=== PATIENT | female | born 1950 | race Caucasian/White ===

== ENCOUNTER 2020-03-24 05:10 | Emergency (ER) | payer BC, MEDICARE ==
[~2020-03-24] VITALS: Ht 165.1 cm; Wt 120.2 kg
--- OUTSIDE RECORDS SUMMARY | 2020-03-24 05:20 | XMS REPORT | Continuity of Care Document ---
Author Author [facility] Organization [facility] Address [address] [place] [address] Phone Unavailable Care Team Providers Care Coach Mechanic Name Role Phone Unavailable Unavailable Payers Payer Name Policy Type Policy Number Effective Date Expiration Date S ource Problems Condition Name Condition Details Condition Category Status Onset Date Resolution Date Last Treatment Date Treating Clinician Comments Source History of polyp of colon History of Polyp of Colon Problem Ac tive 2019-03-23 00:00:00 [facility] Cardiovascular stress test abnormal Cardiovascular Stress Test A bnormal Problem Active 2018-01-24 00:00:00 [facility] Postmenopausal bleeding Postmenopausal Bleeding Problem Active 2016-10-24 00:00:00 [facility] Type II diabetes mellitus uncontrolled Type II Diabetes Joaquina itus Uncontrolled Problem Active 2016-06-12 00:00:00 [facility] Colonoscopy Colonoscopy Problem Active 2016-04-10 00:00:00 [facility] Diverticular disease Diverticular Disease Problem Active 00:00:00 [facility] Hypothyroidism Hypothyroidism Problem Active 2016-02-07 00:00:00 [facility] Hypercholesterolemia Hypercholesterolemia Problem Active 00:00:00 [facility] Benign essential hypertension Benign Essential Hypertension Problem Active 2016-02-07 00:00:00 [facility] Body mass index 40+ - severely obese Body Mass Index 40+ - S everely Obese Problem Active 2016-02-07 00:00:00 [facility] Allergies, Adverse Reactions, Alerts Allergy Name Allergy Type Status Severity Reaction(s) Onset Date Inacti ve Date Treating Clinician Comments Source adhesive tape DA Active U 2019-04-09 00:00:00 [facility] Codeine Allergy to substance Active 2017-11-28 00:00:00 [facility] Penicillins DA Active AL 2017-11-28 00:00:00 [facility] codeine DA Active AL 2017-11-28 00:00:00 [facility] Social History Smoking Status Start Date Stop Date Source Never Smoker Ronda Heredia karla Medications Ordered Medication Name Filled Medication Name Start Date Stop Da te Current Medication? Ordering Clinician Indication Dosage Frequency Signature (SIG) Comments Components Source ascorbic acid (vitamin C) 250 mg tablet Take 1 tablet every day by oral route. ascorbic acid (vitamin C) 250 mg tablet Take 1 tablet every day by oral route. No 1 Q1D ascorbic a marta (vitamin C) 250 mg tablet Take 1 tablet every day by oral route. [facility] aspirin 81 mg chewable tablet Chew 2 tablets every day by oral route. aspirin 81 mg chewable tablet Chew 2 tablets every day by oral route. No 2 Q1D aspirin 81 mg chewable tablet Chew 2 tablets every day by oral route. [facility] Centrum Silver Once daily Centrum Silver Once daily No Centrum Silver Once daily [facility] Co Q-10 once daily Co Q-10 once daily No Co Q-10 once daily [facility] cyanocobalamin (vit B-12) 50 mcg tablet Once daily cya nocobalamin (vit B-12) 50 mcg tablet Once daily No cy anocobalamin (vit B-12) 50 mcg tablet Once daily [facility] Diflucan 150 mg tablet Take 1 tablet by oral route. Di flucan 150 mg tablet Take 1 tablet by oral route. No 1 Diflucan 150 mg tablet Take 1 tablet by oral route. [facility] IBU 800 mg tablet TAKE 1 TABLET BY MOUTH EVERY DAY NEEDED IBU 800 mg tablet TAKE 1 TABLET BY MOUTH EVERY DAY NEEDED No IBU 800 mg tablet TAKE 1 TABLET BY MOUTH EVERY DAY NEEDED [facility] levothyroxine 125 mcg tablet Take 1 tablet every day b y oral route for 90 days. levothyroxine 125 mcg tablet Take 1 tablet every day by oral route for 90 days. No 1 Q1D levothyrox ine 125 mcg tablet Take 1 tablet every day by oral route for 90 days. [facility] lisinopril 20 mg-hydrochlorothiazide 12. 5 mg tablet TAKE 1 TABLET BY MOUTH EVERY DAY lisinopril 20 mg-hydrochlorothiazide 12. 5 mg tablet TAKE 1 TABLET BY MOUTH EVERY DAY No lisinopril 20 mg-hydrochlorothiazide 12.5 mg tablet TAKE 1 TABLET BY MOUTH EVERY DAY [facility] OneTouch Ultra Blue Test Strip OneTouch Ultra Blue Test Strip No OneTouch Ultra Blue Test Strip [facility] Vitamin D once daily Vitamin D once daily No Vitamin D once daily [facility] Immunizations Ordered Immunization Name Filled Immunization Name Date Status Comments Source pneumococcal polysaccharide PPV23 pneumococcal polysaccharid e PPV23 2019-03-30 16:13:39 Completed [facility] influenza, high dose seasonal influenza, high dose seasonal 2017 18:29:00 Completed [facility] pneumococcal conjugate PCV 13 pneumococcal conjugate PCV 13 2017 18:29:00 Completed [facility] influenza, injectable, quadrivalent influenza, injectable, q uadrivalent 2017-01-26 00:00:00 Completed [facility] ice Hep B, adult Hep B, adult 2016-08-22 09:07:34 [facility]pleted [facility] zoster live zoster live 2016-06-12 18:22:40 Completed [facility] Practice Hep B, adult Hep B, adult 2016-03-25 15:50:13 Completed [facility] Hep B, adult Hep B, adult 2016-02-22 15:41:56 Completed [facility] influenza, seasonal, injectable influenza, seasonal, injecta ble 2016-02-07 16:46:56 Completed [facility] Tdap Tdap 2015-04-28 00:00:[address] [facility] Practice influenza, unspecified formulation influenza, unspecified fo rmulation 2015-01-15 00:00:00 Completed [facility] DTaP DTaP 2011-12-10 00:00:[address] [facility] Practice influenza, unspecified formulation influenza, unspecified fo rmulation 1996-02-27 00:00:00 Completed [facility] ice Vital Signs Vital Name Observation Time Observation Value Comments Source Height 2019-10-07 00:00:00 65 [in_i] [facility] BP Diastolic 2019-03-30 00:00:00 66 mm[Hg] [facility] Height 2019-03-30 00:00:00 65 [in_i] [facility] BMI (Body Mass Index) 2019-03-30 00:00:00 46.4 kg/m2 [facility] BP Systolic 2019-03-30 00:00:00 131 mm[Hg] [facility] Body Weight 2019-03-30 00:00:00 279 [lb_av] [facility] BP Diastolic 2019-03-16 00:00:00 88 mm[Hg] [facility] Height 2019-03-16 00:00:00 65 [in_i] [facility] BMI (Body Mass Index) 2019-03-16 00:00:00 47.2 kg/m2 [facility] BP Systolic 2019-03-16 00:00:00 138 mm[Hg] [facility] Body Weight 2019-03-16 00:00:00 283.6 [lb_av] [facility] BP Diastolic 2018-06-11 00:00:00 70 mm[Hg] [facility] Height 2018-06-11 00:00:00 65 [in_i] [facility] BMI (Body Mass Index) 2018-06-11 00:00:00 46.8 kg/m2 [facility] BP Systolic 2018-06-11 00:00:00 120 mm[Hg] [facility] Body Weight 2018-06-11 00:00:00 281 [lb_av] [facility] Procedures Procedure Date / Time Performed Performing Clinician Sourc e MAMMO, screening, digital, bilateral 2019-03-16 00:00:00 [facility] bone density 2019-03-16 00:00:00 [facility] Colonoscopy 2016-04-10 00:00:00 [facility] Practice Colonoscopy 2016-03-28 00:00:00 [facility] Practice Colonoscopy 2010-12-05 00:00:00 [facility] Practice Knee Surgery [facility] P ractice Tonsillectomy [facility] ractice Back Surgery [facility] P ractice Plan of Care Planned Activity Planned Date Details Comments Source Diagnostic Test Pending 2019-10-07 00:00:00 HbA1c (hemoglobi n A1c), blood [code = HbA1c (hemoglobin A1c), blood] [facility] Test Pending 2019-10-07 00:00:00 CMP, serum or pl asma [code = CMP, serum or plasma] [facility] Diagnostic Test Pending 2019-10-07 00:00:00 microalbumin/cre atinine, mass ratio, urine [code = microalbumin/creatinine, mass ratio, urine] [facility] Diagnostic Test Pending 2019-10-07 00:00:00 lipid panel, ser um [code = lipid panel, serum] [facility] Diagnostic Test Pending 2019-10-07 00:00:00 TSH, serum or pl asma [code = TSH, serum or plasma] [facility] Instructions [facility] Encounters Start Date/Time End Date/Time Encounter Type Admission Type Attendi [facility] Care Department Encounter ID Source 2019-10-07 00:00:00 2019-10-07 00:00:00 Luana Rahman MD: [id number], [address], [place] [address], Ph. [facility] - [facility] [id number] [facility] e 2019-03-30 00:00:00 2019-03-30 00:00:00 Janina Mills MD: [address] [place] [id number], Ph. [facility] - [facility] [id number] [facility] 2019-03-17 00:00:00 2019-03-17 00:00:00 Janina Mills MD: [facility] [place] [address], Ph. [facility] - [facility] [id number] [facility] 2019-03-16 00:00:00 2019-03-16 00:00:00 Janina Mills MD: [place] [address], Ph. [facility] [id number] [facility] 2018-06-11 00:00:00 2018-06-11 00:00:00 Janina Mills MD: [address] [place] [phone], Ph. [facility] [id number] [facility] Results Test Description Test Time Test Comments Results Result Comments Source BASIC METABOLIC PANEL 2019-04-09 21:26:00 Test Item SODIUM (test code = NA) 133 mmol/L 136-145 L POTASSIUM (test code = K) 4.6 mmol/L 3.5-5.1 N CHLORIDE (test code = CL) 97.0 mmol/L 98-107 L CARBON DIOXIDE (test code = CO2) 27.0 mmol/L 21-32 N ANION GAP (test code = GAP) 13.6 10-20 N GLUCOSE (test code = GLU) 518 mg/dL 74-106 HH Re sults called to [id number] by [email or web address] 04/09/19 1506Critical results verified and read back by Nurse? Y BLOOD UREA NITROGEN (test code = BUN) 23 mg/dL 7-18 H GLOMERULAR FILTRATION RATE (test code = GFR) 45 mL/min >=60 Estimated GFR by using Modified MDRD formula.Chronic kidney disease is defined as either kidney damageor GFR <60 mL/min/1.73 m2 for >3 months. CREATININE (test code = CREAT) 1.20 mg/dL 0.55-1.02 H Note change in reference range due to change in reagent. BUN/CREATININE RATIO (test code = BUN/CREA) 19.5 10-20 N CALCIUM (test code = CA) 9.6 mg/dL 8.5-10.1 N BASIC METABOLIC [id number] 15:07:00* Test Item Value Reference Range Interpretation Comments SODIUM (test code = NA) 133 mmol/L 136-145 L POTASSIUM (test code = K) 4.6 mmol/L 3.5-5.1 N CHLORIDE (test code = CL) 97.0 mmol/L 98-107 L CARBON DIOXIDE (test code = CO2) 27.0 mmol/L 21-32 N ANION GAP (test code = GAP) 13.6 10-20 N GLUCOSE (test code = GLU) 518 mg/dL 74-106 HH Re sults called to AOS TO CALL BACK by [email or web address] 04/09/19 1506Critical results verified and read back by Nurse? N BLOOD UREA NITROGEN (test code = BUN) 23 mg/dL 7-18 H GLOMERULAR FILTRATION RATE (test code = GFR) 45 mL/min >=60 Estimated GFR by using Modified MDRD formula.Chronic kidney disease is defined as either kidney damageor GFR <60 mL/min/1.73 m2 for >3 months. CREATININE (test code = CREAT) 1.20 mg/dL 0.55-1.02 H Note change in reference range due to change in reagent. BUN/CREATININE RATIO (test code = BUN/CREA) 19.5 10-20 N CALCIUM (test code = CA) 9.6 mg/dL 8.5-10.1 N HEPATIC FUNCTION [id number] 14:03:00* Test Item Value Reference Range Interpretation Comments TOTAL PROTEIN (test code = PROT) 8.2 gram/dL 6.4-8.2 N ALBUMIN (test code = ALB) 3.8 g/dL 3.4-5.0 N GLOBULIN (test code = GLOB) 4.4 gram/dL 2.7-4.2 H ALBUMIN/GLOBULIN RATIO (test code = A/G) 0.9 0.75-1.50 N BILIRUBIN TOTAL (test code = BILT) 0.50 mg/dL 0.0-1.0 N BILIRUBIN DIRECT (test code = BILD) 0.17 mg/dL 0.0-0.20 N SGOT/AST (test code = AST) 11 IUnit/L 15-37 L SGPT/ALT (test code = ALT) 24 IUnit/L 12-78 N ALKALINE PHOSPHATASE TOTAL (test code = ALKP) 112 IUnit/L 45-117 N Note change in reference range due to change in reagent. BASIC METABOLIC [id number] 13:58:00* Test Item Value Reference Range Interpretation Comments SODIUM (test code = NA) 133 mmol/L 136-145 L POTASSIUM (test code = K) 4.6 mmol/L 3.5-5.1 N CHLORIDE (test code = CL) 97.0 mmol/L 98-107 L CARBON DIOXIDE (test code = CO2) 27.0 mmol/L 21-32 N ANION GAP (test code = GAP) 13.6 10-20 N GLUCOSE (test code = GLU) mg/dL 74-106 BLOOD UREA NITROGEN (test code = BUN) 23 mg/dL 7-18 H GLOMERULAR FILTRATION RATE (test code = GFR) mL/min >=60 CREATININE (test code = CREAT) mg/dL 0.55-1.02 BUN/CREATININE RATIO (test code = BUN/CREA) 10-20 CALCIUM (test code = CA) 9.6 mg/dL 8.5-10.1 N CBC W/AUTO [id number] 13:55:00* Test Item Value Reference Range Interpretation Comments WHITE BLOOD CELL (test code = WBC) 7.8 K/mm3 4.5-12.5 N RED BLOOD CELL (test code = RBC) 5.25 mill/mm3 3.7-5.2 H HEMOGLOBIN (test code = HGB) 15.7 gram/dL 11.5-15.5 H HEMATOCRIT (test code = HCT) 49.2 % 36.0-46.0 H MEAN CELL VOLUME (test code = MCV) 93.7 fL 80-98 N MEAN CELL HGB (test code = MCH) 29.9 picogram 27.0-33.0 N MEAN CELL HGB CONCETRATION (test code = MCHC) 31.9 gram/dL 33.0-36. 0 L RED CELL DISTRIBUTION WIDTH (test code = RDW) 12.5 % 11.6-16. 2 N RED CELL DISTRIBUTION WIDTH SD (test code = RDW-SD) 43.3 fL 37 .0-51.0 N PLATELET COUNT (test code = PLT) 224 K/mm3 150-450 N MEAN PLATELET VOLUME (test code = MPV) 12.7 fL 6.7-11.0 H NEUTROPHIL % (test code = NT%) 61.1 % 39.0-69.0 N IMMATURE GRANULOCYTE % (test code = IG%) 0.3 % 0.0-5.0 N LYMPHOCYTE % (test code = LY%) 27.8 % 25.0-55.0 N MONOCYTE % (test code = MO%) 5.6 % 0.0-10.0 N EOSINOPHIL % (test code = EO%) 4.0 % 0.0-5.0 N BASOPHIL % (test code = BA%) 1.2 % 0.0-1.0 H NUCLEATED RBC % (test code = NRBC%) 0.0 % 0-0 N NEUTROPHIL # (test code = NT#) 4.78 K/mm3 1.8-7.7 N IMMATURE GRANULOCYTE # (test code = IG#) 0.02 x10 3/uL 0-0.03 N LYMPHOCYTE # (test code = LY#) 2.17 K/mm3 1.0-5.0 N MONOCYTE # (test code = MO#) 0.44 K/mm3 0-0.8 N EOSINOPHIL # (test code = EO#) 0.31 K/mm3 0.0-0.5 N BASOPHIL # (test code = BA#) 0.09 K/mm3 0.0-0.2 N NUCLEATED RBC # (test code = NRBC#) 0.00 K/mm3 0.0-0.1 N MANUAL DIFF REQUIRED (test code = MDIFF) NO BASIC METABOLIC [id number] 13:52:00* Test Item Value Reference Range Interpretation Comments SODIUM (test code = NA) 133 mmol/L 136-145 L POTASSIUM (test code = K) 4.6 mmol/L 3.5-5.1 N CHLORIDE (test code = CL) 97.0 mmol/L 98-107 L CARBON DIOXIDE (test code = CO2) mmol/L 21-32 ANION GAP (test code = GAP) 10-20 GLUCOSE (test code = GLU) mg/dL 74-106 BLOOD UREA NITROGEN (test code = BUN) mg/dL 7-18 GLOMERULAR FILTRATION RATE (test code = GFR) mL/min >=60 CREATININE (test code = CREAT) mg/dL 0.55-1.02 BUN/CREATININE RATIO (test code = BUN/CREA) 10-20 CALCIUM (test code = CA) mg/dL 8.5-10.1 Comprehensive metabolic 2000 panel - Serum or [id number] 17:27:00* Test Item Value Reference Range Interpretation Comments ALT (test code = ALT) 14 U/L 0-55 AST (test code = AST) 12 U/L 5-34 BUN (test code = BUN) 16.4 mg/dL 9.8-25.0 alk phos (test code = alk phos) 106 unit/L 40-150 glucose (test code = glucose) 408 mg/dL 70-99 H albumin (test code = albumin) 3.5 g/dL 3.4-5.1 creatinine (test code = creatinine) 0.99 mg/dL 0.57-1.11 eGFR non- (test code = eGFR non-anders n haitian) 56 mL/min/1.73m2 A total bilirubin (test code = total bilirubin) 0.6 mg/dL 0.2-1.2 eGFR - (test code = eGFR - ) >60 sodium (test code = sodium) 135 mEq/L 135-145 potassium (test code = potassium) 4.3 mEq/L 3.5-5.1 chloride (test code = chloride) 101 mmol/L 98-110 total protein (test code = total protein) 7.0 g/dL 6.1-8.2 calcium (test code = calcium) 9.2 mg/dL 8.6-10.4 CO2 (test code = CO2) 29.0 mmol/L 20.0-32.0 anion gap (test code = anion gap) 5 calc [facility] - Serum or [id number] 17:11:00* Test Item Value Reference Range Interpretation Comments HDL (test code = HDL) 53 mg/dL triglyceride (test code = triglyceride) 136 mg/dL 0-150 VLDL (calculated) (test code = VLDL (calculated)) 27 mg/dL cholesterol/HDL ratio (test code = cholesterol/HDL ratio) 4.4 mg/dL non-HDL cholesterol (calculated) (test code = non-HDL cholesterol (calculated)) 181 mg/dL 0-160 H cholesterol (test code = cholesterol) 234 mg/dL 0-200 H Cholesterol in LDL [Mass/volume] in Serum or Plasma (t est code = 2089-1) 154 mg/dL 0-130 H [facility] [Units/volume] in Serum or [id number] 17:11:00* Test Item Value Reference Range Interpretation Comments TSH (test code = TSH) 6.093 uIU/mL 0.350-4.940 H [facility] Women[facility] A1c/Hemoglobin.total in [id number] 15:20:00* Test Item Value Reference Range Interpretation Comments Hemoglobin A1c/Hemoglobin.total in Blood (test code = 4548-4) 14.7 % 1.0-5.7 H average blood glucose (test code = average blood glucose) 375 mg/dL [facility] Auto Differential panel - [id number] 15:17:00 * Test Item Value Reference Range Interpretation Comments WBC (test code = WBC) 5.66 x10*3/?L 3.98-10.04 RBC (test code = RBC) 4.90 10*12/L 3.93-5.22 hemoglobin (test code = hemoglobin) 14.80 g/dL 11.20-15.70 hematocrit (test code = hematocrit) 44.9 % 34.1-44.9 MCV (test code = MCV) 91.6 fL 80.0-100.0 MCH (test code = MCH) 30.2 pg 25.6-32.2 MCHC (test code = MCHC) 33.0 g/dL 32.2-35.5 RDW-SD (test code = RDW-SD) 42.7 fL 36.4-46.3 platelet count (test code = platelet count) 182.0 k/uL 182.0-369. 0 MPV (test code = MPV) 13.3 fL 7.5-11.5 H neut% (test code = neut%) 45.5 % 34.0-71.1 lymph% (test code = lymph%) 39.8 % 19.3-51.7 mon% (test code = mon%) 7.2 % 4.7-12.5 eos% (test code = eos%) 6.4 % 0.7-5.8 H baso% (test code = baso%) 1.1 % 0.1-1.2 neut# (test code = neut#) 2.6 x10*3/?L 1.6-6.1 lymph# (test code = lymph#) 2.3 x10*3/?L 1.2-3.7 mon# (test code = mon#) 0.4 x10*3/?L 0.2-0.9 eos# (test code = eos#) 0.36 x10*3/?L 0.04-0.36 baso# (test code = baso#) 0.06 x10*3/?L 0.01-0.08 [facility]
[2020-03-24 05:54] LABS: CLARITY,URINE SL CLOUDY (CLEAR); COLOR,URINE YELLOW (YELLOW)
--- NOTE | 2020-03-24 05:54 | Emergency Department Note ---
History of Present Illnes History of Present Illness Chief Complaint: Abdominal Complaints History of Present Illness This is a 69 year old female PRESENTS TO THE ER C/O RT HIP PAIN ONSET YESTERDAY; PT STATES SHE APPLIED ROLL-ON LIDOCAINE TO RT HIP WITH SLIGHT RELIEF . Historian: Patient Arrival Mode: Car [employer] Required: No Onset (how long ago): day(s) Location: RIGHT HIP/LOWER BACK Quality: PAIN Radiation: Reports non-radiation Severity: mild Onset quality: gradual Duration (how long): day(s) (1) Timing of current episode: constant Progression: unchanged Chronicity: new Context: Denies recent illness, Denies recent surgery Relieving factors: none Exacerbating factors: movement Associated symptoms: Reports denies other symptoms Past Medical/Family History Physician Review I have reviewed the patient's past medical and family history. Any updates have been documented here. Past Medical History Recent Fever: No Clinical Suspicion of Infectio: No New/Unexplained Change in Ment: No Past Medical History: Hypertension, Diabetes Other Surgery: BILATERAL KNEE SX Social History Smoking Cessation: Never Smoker Alcohol Use: None Any Illegal Drug Use: No Family History Family history of heart diseas: No Other family history HTN,DM Review of Systems Review of Systems Constitutional: Reports no symptoms EENTM: Reports no symptoms Cardiovascular: Reports no symptoms Respiratory: Reports no symptoms Gastrointestinal: Reports no symptoms Genitourinary: Reports no symptoms Musculoskeletal: Reports as per HPI Integumentary: Reports no symptoms Neurological: Reports no symptoms Psychological: Reports no symptoms Endocrine: Reports no symptoms Hematological/Lymphatic: Reports no symptoms Physical Exam Related Data Allergies: Coded Allergies: codeine (Verified Allergy, Unknown, 03/24/20) Triage Vital Signs Vital Signs Date Time Temp Pulse Resp B/P (MAP) Pulse Ox O2 Delivery O2 Flow Rate FiO2 03/24/20 05:22 98.4 87 20 126/83 96 Room Air Vital signs reviewed: Yes Physical Exam CONSTITUTIONAL Constitutional: Present well-developed, Present well-nourished; Absent distressed HENT HENT: Present normocephalic, Present atraumatic, Present oropharynx scott ar/moist, Present nose normal HENT L/R: Present left ext ear normal, Present right ext ear normal EYES Eyes: Reports PERRL, Reports conjunctivae normal NECK Neck: Present ROM normal PULMONARY Pulmonary: Present effort normal, Present breath sounds normal CARDIOVASCULAR Cardiovascular: Present regular rhythm, Present heart sounds normal, Present capillary refill normal, Present normal rate GASTROINTESTINAL Abdominal: Present soft, Present nontender, Present bowel sounds normal GENITOURINARY Genitourinary: Present exam deferred SKIN Skin: Present warm, Present dry MUSCULOSKELETAL Musculoskeletal: Present ROM normal, Present tenderness (RIGHT LOWER BACK, NO MIDLINE TENDERNESS) NEUROLOGICAL Neurological: Present alert, Present oriented x 3, Present no gross motor or sensory deficits PSYCHOLOGICAL Psychological: Present mood/affect normal, Present judgement normal Results Laboratory Laboratory Laboratory Tests Test 03/24/20 05:32 Lab results reviewed: Yes Assessment & Plan Medical Decision Making MDM PT WITH RIGHT LOWER BACK PAIN UA ORDERED TO EVAL FOR UTI Assessment & Plan Final Impression: (1) Back pain Depart Disposition: HOME, SELF-CARE Last Vital Signs Date Time Temp Pulse Resp B/P (MAP) Pulse Ox O2 Delivery O2 Flow Rate FiO2 03/24/20 05:22 98.4 87 20 126/83 96 Room Air ANTHONY MARTÍNEZ MD Mar 24, 2020 05:54
[2020-03-24 05:55] LABS: LEUKOCYTE ESTERASE ,URINE NEGATIVE (NEGATIVE); NITRITE,URINE NEGATIVE (NEGATIVE); PROTEIN,URINE DIPSTICK NEGATIVE (NEGATIVE)
[2020-03-24 05:56] LABS: BACTERIA,URINE RARE /HPF; BILIRUBIN,URINE NEGATIVE (NEGATIVE); EPITHELIAL CELLS,URINE FEW /LPF; KETONES,URINE NEGATIVE (NEGATIVE); RBC,URINE 21-50 /HPF (0-5); URINE UROBILINOGEN 0.2 mg/dL (0.2 - 1)
== END 2020-03-24 06:03 | disposition home or self-care (01) ==
LOC: ER 05:17
DX: M25.551 Pain in right hip (principal); M54.5 Low back pain; I10 Essential (primary) hypertension; E11.9 Type 2 diabetes mellitus without complications
CPT/HCPCS: 81001; 99283

== ENCOUNTER 2020-06-07 18:57 | Emergency (ER) | payer MEDICARE ==
[~2020-06-07] VITALS: Ht 165.1 cm; Wt 120.2 kg
[2020-06-07] MEDS ORDERED: SODIUM CHLORIDE 0.9% 1000ML 1,000 ML IV ONE ×2 (19:45→21:30)
[2020-06-07] MEDS ORDERED: SODIUM CHLORIDE 0.9% 1000ML 1,000 ML ONE (19:54)
[2020-06-07 20:14] LABS: BASOPHILS % 0.7 % (0.0-1.0); EOSINOPHILS % 0.4 % (0.0-6.0); HEMATOCRIT 45.8 % (34.2-44.1); HEMOGLOBIN 15.3 g/dL (12.0-16.0); LYMPHOCYTES # (AUTO) 1.1 (1.0-3.2); LYMPHOCYTES % 24.5 % (18.0-39.1); MEAN CORPUSCULAR HEMOGLOBIN 30.5 pg (28-32); MEAN CORPUSCULAR HGB CONC 33.4 g/dL (31-35); MEAN CORPUSCULAR VOLUME 91.4 fL (81-99); MONOCYTES # (AUTO) 0.5 (0.2-0.8); NEUTROPHILS # (AUTO) 2.8 (2.1-6.9); NEUTROPHILS % 62.2 % (38.7-80.0); PLATELET COUNT 145 x10e3/uL (140-360); RED BLOOD COUNT 5.01 x10e6/uL (3.6-5.1); RED CELL DISTRIBUTION WIDTH 12.6 % (11.7-14.4)
[2020-06-07 20:30] LABS: ALBUMIN 3.4 g/dL (3.5-5.0); ALBUMIN/GLOBULIN RATIO 0.9 (0.8-2.0); AMYLASE 15 U/L (25-125); ANION GAP 15.2 mmol/L (8-16); CALCIUM 8.6 mg/dL (8.4-10.2); CREATININE, SERUM 1.1 mg/dL (0.57-1.11); LIPASE 14 U/L (8-78); POTASSIUM 4.2 mmol/L (3.5-5.1)
[2020-06-07 21:08] LABS: CLARITY,URINE SL CLOUDY (CLEAR); COLOR,URINE YELLOW (YELLOW); KETONES,URINE 1+ (NEGATIVE); LEUKOCYTE ESTERASE ,URINE NEGATIVE (NEGATIVE); NITRITE,URINE NEGATIVE (NEGATIVE); PROTEIN,URINE DIPSTICK NEGATIVE (NEGATIVE); URINE UROBILINOGEN 0.2 mg/dL (0.2 - 1)
[2020-06-07 21:20] LABS: BACTERIA,URINE RARE /HPF; RBC,URINE 0-5 /HPF (0-5)
[2020-06-07] MEDS ORDERED: INSULIN REGULAR, HUMAN 100 UNIT/1 ML 3ML VIAL ONE (21:30)
[2020-06-07] MEDS ORDERED: INSULIN REGULAR, HUMAN 100 UNIT/1 ML 3ML VIAL SQ ONE (21:30)
[2020-06-07 23:03] VITALS: BP 124/76
== END 2020-06-07 23:04 | disposition home or self-care (01) ==
LOC: ER 19:33
DX: R19.7 Diarrhea, unspecified (principal); E11.65 Type 2 diabetes mellitus with hyperglycemia; R53.1 Weakness; I10 Essential (primary) hypertension; Z87.19 Personal history of other diseases of the digestive system
CPT/HCPCS: 36415; 80053; 81001; 82150; 82948; 83690; 85025; 93005; 99283; J1817; J7030

== ENCOUNTER 2020-06-12 13:31 | Inpatient (IN) | payer MEDICARE ==
[~2020-06-12] VITALS: Ht 165.1 cm; Wt 116.6 kg
[2020-06-12 14:17] LABS: BASOPHILS % 0.1 % (0.0-1.0); HEMATOCRIT 42.9 % (34.2-44.1); HEMOGLOBIN 14.4 g/dL (12.0-16.0); LYMPHOCYTES # (AUTO) 0.8 (1.0-3.2); LYMPHOCYTES % 11.1 % (18.0-39.1); MEAN CORPUSCULAR HGB CONC 33.6 g/dL (31-35); MEAN CORPUSCULAR VOLUME 89.4 fL (81-99); MONOCYTES # (AUTO) 0.4 (0.2-0.8); MONOCYTES % 4.8 % (4.4-11.3); NEUTROPHILS # (AUTO) 6.1 (2.1-6.9); NEUTROPHILS % 83.6 % (38.7-80.0); PLATELET COUNT 158 x10e3/uL (140-360); RED CELL DISTRIBUTION WIDTH 12.8 % (11.7-14.4)
[2020-06-12 14:38] LABS: ALBUMIN 2.4 g/dL (3.5-5.0); ALBUMIN/GLOBULIN RATIO 0.5 (0.8-2.0); ANION GAP 19.8 mmol/L (8-16); CALCIUM 8.3 mg/dL (8.4-10.2); CREATININE, SERUM 0.99 mg/dL (0.57-1.11); POTASSIUM 3.8 mmol/L (3.5-5.1)
[2020-06-12 14:45] LABS: CREATINE KINASE MB 0.5 ng/mL (0-5.0)
[2020-06-12] MEDS ORDERED: SODIUM CHLORIDE 0.9% 1000ML 1,000 ML IV STA (14:57)
[2020-06-12] MEDS ORDERED: INSULIN REGULAR, HUMAN 100 UNIT/1 ML 3ML VIAL IV ONE (15:00)
[2020-06-12] MEDS ORDERED: ONDANSETRON HCL INJ 2MG/ML 2ML 2 MG/ML VIAL IV PRN (18:30)
[2020-06-12] MEDS ORDERED: DEXTROSE 50% SYRINGE 50 ML IV PRN (18:30)
[2020-06-12] MEDS ORDERED: ZOLPIDEM TARTRATE 5 MG TAB PO PRN (18:30)
[2020-06-12] MEDS ORDERED: CEFTRIAXONE SOD 1 GM 50 ML IV SCH (18:30)
[2020-06-12] MEDS: AZITHROMYCIN 500MG/NS 250 ML 250 ML IV SCH (18:54)
[2020-06-12] MEDS ORDERED: CEFTRIAXONE SOD 1 GM VIAL ONE (18:58)
[2020-06-12] MEDS ORDERED: REMDESIVIR 200MG/NS 100ML 200 MG IV ONE (19:24)
[2020-06-12] MEDS ORDERED: REMDESIVIR 200MG/NS 100ML 200 MG in SODIUM CHLORIDE 0.9% 100 ML 100 ML IV ONE (19:55)
[2020-06-12] MEDS: INSULIN REGULAR, HUMAN 100 UNIT/1 ML 3ML VIAL SQ SCH (20:54)
[2020-06-12 22:34] LABS: CREATINE KINASE MB 0.8 ng/mL (0-5.0)
[2020-06-12] MEDS: ACETAMINOPHEN 325 MG TAB PO PRN (23:59)
[2020-06-13] MEDS ORDERED: DEXAMETHASONE SOD PHOS 10 MG/1 ML VIAL IV ONE (01:15)
[2020-06-13 06:32] LABS: BASOPHILS % 0.2 % (0.0-1.0); HEMATOCRIT 46.1 % (34.2-44.1); HEMOGLOBIN 15.3 g/dL (12.0-16.0); LYMPHOCYTES % 10.9 % (18.0-39.1); MEAN CORPUSCULAR HEMOGLOBIN 29.7 pg (28-32); MEAN CORPUSCULAR HGB CONC 33.2 g/dL (31-35); MEAN CORPUSCULAR VOLUME 89.5 fL (81-99); MONOCYTES # (AUTO) 0.4 (0.2-0.8); MONOCYTES % 3.9 % (4.4-11.3); NEUTROPHILS # (AUTO) 7.8 (2.1-6.9); NEUTROPHILS % 84.6 % (38.7-80.0); PLATELET COUNT 201 x10e3/uL (140-360); RED BLOOD COUNT 5.15 x10e6/uL (3.6-5.1); RED CELL DISTRIBUTION WIDTH 12.9 % (11.7-14.4)
[2020-06-13 07:19] LABS: ALANINE AMINOTRANSFERASE 24 IU/L (0-55); ALBUMIN 2.3 g/dL (3.5-5.0); ALBUMIN/GLOBULIN RATIO 0.5 (0.8-2.0); ALKALINE PHOSPHATASE 78 IU/L (40-150); BLOOD UREA NITROGEN 15 mg/dL (7-26); BUN/CREATININE RATIO 16 (6-25); CALCIUM 8.6 mg/dL (8.4-10.2); CARBON DIOXIDE 24 mmol/L (22-29); CHLORIDE 98 mmol/L (98-107); CREATININE, SERUM 0.92 mg/dL (0.57-1.11); EST GLOMERULAR FILTRATION RATE > 60 ML/MIN (60-); GLUCOSE 236 mg/dL (74-118); SODIUM 138 mmol/L (136-145)
[2020-06-13 07:46] LABS: CREATINE KINASE MB 1.7 ng/mL (0-5.0)
[2020-06-13 09:46] LABS: ABG HCO3 23 mmol/L (22-26); ABG PCO2 38 mmHg (35-45); ABG PH 7.39 (7.35-7.45); ABG PO2 50 mmHg (80-105); ABG TCO2 24
[2020-06-13] MEDS: DEXAMETHASONE SOD PHOS 10 MG/1 ML VIAL IV SCH (10:15)
[2020-06-13] MEDS: ACETAMINOPHEN 325 MG TAB PO PRN (10:15)
[2020-06-13] MEDS: ZINC SULFATE 220 MG CAP PO SCH (10:20)
[2020-06-13] MEDS: ENOXAPARIN SOD INJ 40 MG/0.4 ML SYR SC SCH (16:47)
[2020-06-13] MEDS: INSULIN REGULAR, HUMAN 100 UNIT/1 ML 3ML VIAL SQ SCH ×4 (16:58→21:07)
[2020-06-13] MEDS: AZITHROMYCIN 500MG/NS 250 ML 250 ML IV SCH (19:19)
[2020-06-13] MEDS: CEFTRIAXONE SOD 1 GM in DEXTROSE 5% 50ML 50 ML IV SCH (20:55)
[2020-06-13] MEDS ORDERED: CEFTRIAXONE SOD 1 GM VIAL ONE (21:00)
[2020-06-14] MEDS: ACETAMINOPHEN 325 MG TAB PO PRN (06:32)
[2020-06-14] MEDS: INSULIN REGULAR, HUMAN 100 UNIT/1 ML 3ML VIAL SQ SCH ×4 (08:22→23:31)
[2020-06-14] MEDS: ZINC SULFATE 220 MG CAP PO SCH (09:24)
[2020-06-14] MEDS: DEXAMETHASONE SOD PHOS 10 MG/1 ML VIAL IV SCH (09:24)
[2020-06-14] MEDS ORDERED: CEFTRIAXONE SOD 1 GM VIAL ONE (20:05)
[2020-06-14] MEDS ORDERED: SODIUM CHLORIDE 0.9% 50ML 50 ML ONE (20:06)
[2020-06-14] MEDS ORDERED: INSULIN GLARGINE 100 UNITS/ML VIAL SQ SCH (21:00)
[2020-06-14] MEDS: CEFTRIAXONE SOD 1 GM in DEXTROSE 5% 50ML 50 ML IV SCH (21:32)
[2020-06-14] MEDS: ENOXAPARIN SOD INJ 40 MG/0.4 ML SYR SC SCH (21:32)
[2020-06-14] MEDS: AZITHROMYCIN 500MG/NS 250 ML 250 ML IV SCH (21:59)
[2020-06-14] MEDS ORDERED: POLYETHYLENE GLYCOL 3350 17 GM PACK PO PRN (22:30)
[2020-06-14] MEDS ORDERED: HYDRALAZINE HCL 20 MG/ML VIAL IV PRN (22:30)
[2020-06-14] MEDS ORDERED: TEMAZEPAM 7.5 MG CAP PO PRN (22:30)
[2020-06-14 23:17] VITALS: BP 136/78
[2020-06-14] MEDS ORDERED: levothyroxine PO (23:57)
[2020-06-14] MEDS ORDERED: LISINOPRIL HCTZ PO (23:57)
[2020-06-14 23:58] VITALS: BP 136/78
[2020-06-15] VITALS (23 sets, daily range): BP systolic 92–138; BP diastolic 66–91
[2020-06-15 05:37] LABS: BASOPHILS % 0.2 % (0.0-1.0); HEMATOCRIT 47.9 % (34.2-44.1); HEMOGLOBIN 15.7 g/dL (12.0-16.0); LYMPHOCYTES # (AUTO) 1.6 (1.0-3.2); LYMPHOCYTES % 13.9 % (18.0-39.1); MEAN CORPUSCULAR HEMOGLOBIN 29.6 pg (28-32); MEAN CORPUSCULAR HGB CONC 32.8 g/dL (31-35); MEAN CORPUSCULAR VOLUME 90.4 fL (81-99); MONOCYTES # (AUTO) 0.6 (0.2-0.8); MONOCYTES % 5.4 % (4.4-11.3); NEUTROPHILS # (AUTO) 8.9 (2.1-6.9); NEUTROPHILS % 79.3 % (38.7-80.0); PLATELET COUNT 261 x10e3/uL (140-360)
[2020-06-15 05:55] LABS: ALANINE AMINOTRANSFERASE 19 IU/L (0-55); ALBUMIN 2.2 g/dL (3.5-5.0); ALBUMIN/GLOBULIN RATIO 0.5 (0.8-2.0); ALKALINE PHOSPHATASE 106 IU/L (40-150); ANION GAP 15.1 mmol/L (8-16); BLOOD UREA NITROGEN 23 mg/dL (7-26); BUN/CREATININE RATIO 30 (6-25); CALCIUM 8.6 mg/dL (8.4-10.2); CARBON DIOXIDE 31 mmol/L (22-29); CHLORIDE 102 mmol/L (98-107); CREATININE, SERUM 0.77 mg/dL (0.57-1.11); EST GLOMERULAR FILTRATION RATE > 60 ML/MIN (60-); GLUCOSE 187 mg/dL (74-118); POTASSIUM 4.1 mmol/L (3.5-5.1); SODIUM 144 mmol/L (136-145)
[2020-06-15] MEDS: INSULIN REGULAR, HUMAN 100 UNIT/1 ML 3ML VIAL SQ SCH ×4 (07:30→21:39)
[2020-06-15] MEDS: FAMOTIDINE 20 MG TAB PO SCH ×2 (07:30→19:03)
[2020-06-15 08:18] LABS: LYMPHOCYTES % (MANUAL) 11 % (19-48); MONOCYTES % (MANUAL) 10 % (3.4-9.0); NEUTROPHILS % (MANUAL) 76 % (40-74); PLATELET ESTIMATE ADEQUATE; PLATELET MORPHOLOGY COMMENT NORMAL; RBC MORPHOLOGY COMMENT NORMAL
[2020-06-15] MEDS: CHOLECALCIFEROL 400 UNIT TAB PO SCH (09:30)
[2020-06-15] MEDS: ZINC SULFATE 220 MG CAP PO SCH (09:30)
[2020-06-15] MEDS: DOCUSATE SODIUM 100 MG CAP PO SCH ×2 (09:30→19:03)
[2020-06-15] MEDS: ASCORBIC ACID 500 MG TAB PO SCH ×2 (09:30→19:03)
[2020-06-15] MEDS: DEXAMETHASONE SOD PHOS 10 MG/1 ML VIAL IV SCH (09:32)
[2020-06-15] MEDS: ENOXAPARIN SOD INJ 40 MG/0.4 ML SYR SC SCH (19:03)
[2020-06-15] MEDS: AZITHROMYCIN 500MG/NS 250 ML 250 ML IV SCH (19:03)
[2020-06-15] MEDS: CEFTRIAXONE SOD 1 GM in DEXTROSE 5% 50ML 50 ML IV SCH (21:29)
[2020-06-15] MEDS: INSULIN GLARGINE 100 UNITS/ML VIAL SQ SCH (21:39)
[2020-06-16] VITALS (18 sets, daily range): BP systolic 92–133; BP diastolic 43–91
[2020-06-16 06:12] LABS: BASOPHILS # (AUTO) 0.1 (0.0-0.1); BASOPHILS % 0.5 % (0.0-1.0); EOSINOPHILS % 0.3 % (0.0-6.0); HEMATOCRIT 46.5 % (34.2-44.1); LYMPHOCYTES # (AUTO) 1.3 (1.0-3.2); MEAN CORPUSCULAR HEMOGLOBIN 29.2 pg (28-32); MEAN CORPUSCULAR HGB CONC 32.3 g/dL (31-35); MEAN CORPUSCULAR VOLUME 90.6 fL (81-99); MONOCYTES # (AUTO) 0.5 (0.2-0.8); MONOCYTES % 4.6 % (4.4-11.3); NEUTROPHILS # (AUTO) 8.5 (2.1-6.9); NEUTROPHILS % 80.7 % (38.7-80.0); PLATELET COUNT 210 x10e3/uL (140-360); RED BLOOD COUNT 5.13 x10e6/uL (3.6-5.1); RED CELL DISTRIBUTION WIDTH 13.2 % (11.7-14.4)
[2020-06-16 06:47] LABS: ALANINE AMINOTRANSFERASE 18 IU/L (0-55); ALBUMIN 2.1 g/dL (3.5-5.0); ALBUMIN/GLOBULIN RATIO 0.4 (0.8-2.0); ALKALINE PHOSPHATASE 119 IU/L (40-150); ANION GAP 15.2 mmol/L (8-16); BLOOD UREA NITROGEN 19 mg/dL (7-26); BUN/CREATININE RATIO 25 (6-25); CALCIUM 8.3 mg/dL (8.4-10.2); CARBON DIOXIDE 29 mmol/L (22-29); CHLORIDE 104 mmol/L (98-107); CREATININE, SERUM 0.77 mg/dL (0.57-1.11); EST GLOMERULAR FILTRATION RATE > 60 ML/MIN (60-); GLUCOSE 151 mg/dL (74-118); POTASSIUM 4.2 mmol/L (3.5-5.1); SODIUM 144 mmol/L (136-145)
[2020-06-16] MEDS: ACETAMINOPHEN 325 MG TAB PO PRN ×2 (07:00)
[2020-06-16] MEDS: FAMOTIDINE 20 MG TAB PO SCH ×2 (08:31→17:31)
[2020-06-16] MEDS: DEXAMETHASONE SOD PHOS 10 MG/1 ML VIAL IV SCH (08:32)
[2020-06-16] MEDS: INSULIN REGULAR, HUMAN 100 UNIT/1 ML 3ML VIAL SQ SCH ×4 (08:32→22:00)
[2020-06-16] MEDS: DOCUSATE SODIUM 100 MG CAP PO SCH ×2 (08:32→17:31)
[2020-06-16] MEDS: ASCORBIC ACID 500 MG TAB PO SCH ×2 (08:32→17:31)
[2020-06-16] MEDS: ZINC SULFATE 220 MG CAP PO SCH (08:32)
[2020-06-16] MEDS: CHOLECALCIFEROL 400 UNIT TAB PO SCH (08:32)
[2020-06-16 13:50] LABS: LYMPHOCYTES % (MANUAL) 6 % (19-48); MONOCYTES % (MANUAL) 5 % (3.4-9.0); NEUTROPHILS % (MANUAL) 89 % (40-74); PLATELET ESTIMATE ADEQUATE; PLATELET MORPHOLOGY COMMENT NORMAL; RBC MORPHOLOGY COMMENT NORMAL
[2020-06-16] MEDS: ENOXAPARIN SOD INJ 40 MG/0.4 ML SYR SC SCH (17:32)
[2020-06-16] MEDS: AZITHROMYCIN 500MG/NS 250 ML 250 ML IV SCH (17:32)
[2020-06-16] MEDS ORDERED: DEXMEDETOMIDINE IV ONE (20:36)
[2020-06-16] MEDS ORDERED: [UNRECOGNIZED DRUG - OTHER] IV ONE (20:36)
[2020-06-16] MEDS: DEXMEDETOMIDINE HCL 200 MCG in SODIUM CHLORIDE 0.9% 50ML 48 ML IV SCH (21:00)
[2020-06-16] MEDS: CEFTRIAXONE SOD 1 GM in DEXTROSE 5% 50ML 50 ML IV SCH (21:08)
[2020-06-16] MEDS: INSULIN GLARGINE 100 UNITS/ML VIAL SQ SCH (22:00)
[2020-06-17] VITALS (16 sets, daily range): BP systolic 91–136; BP diastolic 41–84
[2020-06-17] MEDS: DEXMEDETOMIDINE HCL 200 MCG in SODIUM CHLORIDE 0.9% 50ML 48 ML IV SCH ×3 (01:45→14:00)
[2020-06-17 05:54] LABS: HEMATOCRIT 45.2 % (34.2-44.1); HEMOGLOBIN 14.7 g/dL (12.0-16.0); MEAN CORPUSCULAR HEMOGLOBIN 29.5 pg (28-32); MEAN CORPUSCULAR VOLUME 90.6 fL (81-99); RED BLOOD COUNT 4.99 x10e6/uL (3.6-5.1)
[2020-06-17 05:55] LABS: BASOPHILS % 0.3 % (0.0-1.0); EOSINOPHILS # (AUTO) 0.1 (0.0-0.4); EOSINOPHILS % 0.8 % (0.0-6.0); MEAN CORPUSCULAR HGB CONC 32.5 g/dL (31-35); MONOCYTES # (AUTO) 0.6 (0.2-0.8); MONOCYTES % 4.5 % (4.4-11.3); NEUTROPHILS # (AUTO) 10.5 (2.1-6.9); NEUTROPHILS % 77.3 % (38.7-80.0); PLATELET COUNT 144 x10e3/uL (140-360); RED CELL DISTRIBUTION WIDTH 13.2 % (11.7-14.4)
[2020-06-17 06:16] LABS: ALANINE AMINOTRANSFERASE 14 IU/L (0-55); ALBUMIN 2.1 g/dL (3.5-5.0); ALBUMIN/GLOBULIN RATIO 0.5 (0.8-2.0); ALKALINE PHOSPHATASE 143 IU/L (40-150); ANION GAP 13.5 mmol/L (8-16); BLOOD UREA NITROGEN 18 mg/dL (7-26); BUN/CREATININE RATIO 24 (6-25); CARBON DIOXIDE 31 mmol/L (22-29); CHLORIDE 103 mmol/L (98-107); CREATININE, SERUM 0.75 mg/dL (0.57-1.11); EST GLOMERULAR FILTRATION RATE > 60 ML/MIN (60-); GLUCOSE 60 mg/dL (74-118); POTASSIUM 3.5 mmol/L (3.5-5.1); SODIUM 144 mmol/L (136-145)
[2020-06-17] MEDS: INSULIN REGULAR, HUMAN 100 UNIT/1 ML 3ML VIAL SQ SCH ×4 (07:30→21:10)
[2020-06-17] MEDS: FAMOTIDINE 20 MG TAB PO SCH ×2 (07:30→16:30)
[2020-06-17] MEDS: DEXAMETHASONE SOD PHOS 10 MG/1 ML VIAL IV SCH (08:39)
[2020-06-17] MEDS: CHOLECALCIFEROL 400 UNIT TAB PO SCH (08:39)
[2020-06-17] MEDS: ASCORBIC ACID 500 MG TAB PO SCH ×2 (08:39→16:30)
[2020-06-17] MEDS: ZINC SULFATE 220 MG CAP PO SCH (08:39)
[2020-06-17] MEDS: DOCUSATE SODIUM 100 MG CAP PO SCH ×2 (08:39→16:30)
[2020-06-17] MEDS ORDERED: DEXTROSE IV ONE (12:00)
[2020-06-17] MEDS ORDERED: SOD CHL IV ONE (12:00)
[2020-06-17] MEDS ORDERED: POTASSIUM CHLORIDE IV ONE (12:00)
[2020-06-17] MEDS: ENOXAPARIN SOD INJ 40 MG/0.4 ML SYR SC SCH (16:30)
[2020-06-17 16:44] LABS: ABG HCO3 30 mmol/L (22-26); ABG PCO2 35 mmHg (35-45); ABG PH 7.55 (7.35-7.45); ABG PO2 88 mmHg (80-105); ABG TCO2 31
[2020-06-17] MEDS: INSULIN GLARGINE 100 UNITS/ML VIAL SQ SCH (22:46)
[2020-06-18] VITALS (20 sets, daily range): BP systolic 94–157; BP diastolic 53–99
[2020-06-18] MEDS: DEXMEDETOMIDINE HCL 200 MCG in SODIUM CHLORIDE 0.9% 50ML 48 ML IV SCH ×3 (00:45→08:08)
[2020-06-18] MEDS: PIPERACILLIN/TAZOBAC 3.375 GM in DEXTROSE 5% 50ML 50 ML IV SCH (01:00)
[2020-06-18] MEDS: INSULIN GLARGINE 100 UNITS/ML VIAL SQ SCH (01:00)
[2020-06-18 05:39] LABS: BASOPHILS % 0.3 % (0.0-1.0); EOSINOPHILS % 0.1 % (0.0-6.0); HEMOGLOBIN 13.8 g/dL (12.0-16.0); LYMPHOCYTES # (AUTO) 1.2 (1.0-3.2); LYMPHOCYTES % 8.6 % (18.0-39.1); MEAN CORPUSCULAR HEMOGLOBIN 29.4 pg (28-32); MEAN CORPUSCULAR HGB CONC 32.1 g/dL (31-35); MEAN CORPUSCULAR VOLUME 91.7 fL (81-99); MONOCYTES # (AUTO) 0.6 (0.2-0.8); MONOCYTES % 4.7 % (4.4-11.3); NEUTROPHILS # (AUTO) 11.5 (2.1-6.9); NEUTROPHILS % 84.5 % (38.7-80.0); PLATELET COUNT 103 x10e3/uL (140-360); RED BLOOD COUNT 4.69 x10e6/uL (3.6-5.1); RED CELL DISTRIBUTION WIDTH 13.6 % (11.7-14.4)
[2020-06-18 06:04] LABS: ALANINE AMINOTRANSFERASE 14 IU/L (0-55); ALBUMIN 1.6 g/dL (3.5-5.0); ALBUMIN/GLOBULIN RATIO 0.5 (0.8-2.0); ALKALINE PHOSPHATASE 139 IU/L (40-150); ANION GAP 14.3 mmol/L (8-16); BLOOD UREA NITROGEN 19 mg/dL (7-26); BUN/CREATININE RATIO 27 (6-25); CARBON DIOXIDE 23 mmol/L (22-29); CHLORIDE 111 mmol/L (98-107); EST GLOMERULAR FILTRATION RATE > 60 ML/MIN (60-); GLUCOSE 135 mg/dL (74-118); POTASSIUM 3.3 mmol/L (3.5-5.1); SODIUM 145 mmol/L (136-145)
[2020-06-18 06:07] LABS: CALCIUM 6.5 mg/dL (8.4-10.2)
[2020-06-18] MEDS: FAMOTIDINE 20 MG TAB PO SCH ×2 (07:30→17:01)
[2020-06-18] MEDS ORDERED: DEXMEDETOMIDINE 200MCG/NS 50ML 50 ML IV ONE (07:41)
[2020-06-18] MEDS: DOCUSATE SODIUM 100 MG CAP PO SCH ×2 (08:09→17:01)
[2020-06-18] MEDS: CHOLECALCIFEROL 400 UNIT TAB PO SCH (08:09)
[2020-06-18] MEDS: ASCORBIC ACID 500 MG TAB PO SCH ×2 (08:09→17:01)
[2020-06-18] MEDS: ZINC SULFATE 220 MG CAP PO SCH (08:09)
[2020-06-18] MEDS: INSULIN REGULAR, HUMAN 100 UNIT/1 ML 3ML VIAL SQ SCH ×4 (08:25→21:00)
[2020-06-18] MEDS: DEXAMETHASONE SOD PHOS 10 MG/1 ML VIAL IV SCH (10:06)
[2020-06-18] MEDS ORDERED: POTASSIUM CHLORIDE 20 MEQ TAB CR PO ONE (12:55)
[2020-06-18] MEDS ORDERED: KCL 20 MEQ PACKET/ ORAL SOLN NG ONE (13:05)
[2020-06-18] MEDS ORDERED: SODIUM CHLORIDE 0.9% 500ML 500 ML IV ONE ×2 (13:15→13:30)
[2020-06-18] MEDS ORDERED: SODIUM CHLORIDE 0.9% 1000ML 1,000 ML ONE (13:35)
[2020-06-18] MEDS: FENTANYL 2000MCG/NS 250 250 ML IV SCH (14:21)
[2020-06-18] MEDS: NOREPINEPHRINE 8 MG/D5W 250 ML 250 ML IV SCH (14:22)
[2020-06-18] MEDS: PROPOFOL IV EMULSION 10MG/ML 100 ML IV SCH (15:29)
[2020-06-18 15:53] LABS: ABG HCO3 29 mmol/L (22-26); ABG PCO2 57 mmHg (35-45); ABG PH 7.32 (7.35-7.45); ABG PO2 108 mmHg (80-105); ABG TCO2 31
[2020-06-18] MEDS: ENOXAPARIN SOD INJ 40 MG/0.4 ML SYR SC SCH (17:01)
[2020-06-18] MEDS: ROCURONIUM BROMIDE 1,250 MG in SODIUM CHLORIDE 0.9% 250ML 125 ML IV SCH (17:01)
[2020-06-19] VITALS (33 sets, daily range): BP systolic 87–151; BP diastolic 49–81
[2020-06-19] MEDS ORDERED: PIPERACILLIN/TAZOBAC 3.375 GM VIAL ONE ×2 (00:48→00:50)
[2020-06-19] MEDS ORDERED: DEXTROSE 5% 50ML 100 ML IV ONE (00:51)
[2020-06-19 05:23] LABS: BASOPHILS # (AUTO) 0.1 (0.0-0.1); BASOPHILS % 0.4 % (0.0-1.0); EOSINOPHILS % 0.2 % (0.0-6.0); HEMATOCRIT 46.8 % (34.2-44.1); HEMOGLOBIN 14.7 g/dL (12.0-16.0); LYMPHOCYTES % 8.9 % (18.0-39.1); MEAN CORPUSCULAR HEMOGLOBIN 30.4 pg (28-32); MEAN CORPUSCULAR HGB CONC 31.4 g/dL (31-35); MEAN CORPUSCULAR VOLUME 96.7 fL (81-99); MONOCYTES # (AUTO) 1.1 (0.2-0.8); NEUTROPHILS # (AUTO) 18.4 (2.1-6.9); NEUTROPHILS % 81.4 % (38.7-80.0); PLATELET COUNT 131 x10e3/uL (140-360); RED BLOOD COUNT 4.84 x10e6/uL (3.6-5.1)
[2020-06-19 05:40] LABS: CALCIUM IONIZED 1.1 mmol/L (1.09-1.30)
[2020-06-19 06:00] LABS: ALBUMIN 1.9 g/dL (3.5-5.0); ALBUMIN/GLOBULIN RATIO 0.5 (0.8-2.0); ANION GAP 17.8 mmol/L (8-16); CALCIUM 7.7 mg/dL (8.4-10.2); CREATININE, SERUM 1.05 mg/dL (0.57-1.11); POTASSIUM 4.8 mmol/L (3.5-5.1)
[2020-06-19] MEDS: PIPERACILLIN/TAZOBAC 3.375 GM in DEXTROSE 5% 50ML 50 ML IV SCH (06:52)
[2020-06-19] MEDS: INSULIN REGULAR, HUMAN 100 UNIT/1 ML 3ML VIAL SQ SCH ×3 (06:55→18:08)
[2020-06-19] MEDS: FAMOTIDINE 20 MG TAB PO SCH ×2 (09:18→16:37)
[2020-06-19] MEDS: DOCUSATE SODIUM 100 MG CAP PO SCH ×2 (09:18→17:20)
[2020-06-19] MEDS: CHOLECALCIFEROL 400 UNIT TAB PO SCH (09:18)
[2020-06-19] MEDS: ASCORBIC ACID 500 MG TAB PO SCH ×2 (09:18→17:20)
[2020-06-19] MEDS: DEXAMETHASONE SOD PHOS 10 MG/1 ML VIAL IV SCH (09:18)
[2020-06-19] MEDS: ZINC SULFATE 220 MG CAP PO SCH (09:19)
[2020-06-19 11:29] LABS: ABG PH 7.33 (7.35-7.45)
[2020-06-19 11:30] LABS: ABG HCO3 26 mmol/L (22-26); ABG PCO2 50 mmHg (35-45); ABG PO2 131 mmHg (80-105); ABG TCO2 28
[2020-06-19] MEDS ORDERED: VANCOMYCIN 1GM/NS 250 ML 250 ML IV ONE (12:00)
[2020-06-19] MEDS: PROPOFOL IV EMULSION 10MG/ML 100 ML IV SCH (12:30)
[2020-06-19] MEDS: FENTANYL 2000MCG/NS 250 250 ML IV SCH ×2 (12:30→23:01)
[2020-06-19] MEDS ORDERED: FENTANYL 2,000 MCG/250 ML BAG ONE (13:18)
[2020-06-19] MEDS ORDERED: MIDAZOLAM HCL 5MG/ML 10ML VIAL 100 ML BAG IV ONE (13:18)
[2020-06-19] MEDS: ROCURONIUM BROMIDE 1,250 MG in SODIUM CHLORIDE 0.9% 250ML 125 ML IV SCH (14:42)
[2020-06-19] MEDS: NOREPINEPHRINE 8 MG/D5W 250 ML 250 ML IV SCH (14:42)
[2020-06-19] MEDS: MEROPENEM 1GM 100 ML IV SCH ×2 (14:42→21:50)
[2020-06-19] MEDS: ENOXAPARIN SODIUM INJ 100 MG/ML SYR SC SCH (17:38)
[2020-06-19] MEDS: MIDAZOLAM HCL 5MG/ML 10ML VIAL 100 ML IV PRN (20:02)
[2020-06-19] MEDS ORDERED: ENOXAPARIN SOD INJ 40 MG/0.4 ML SYR SC SCH (21:00)
[2020-06-19] MEDS: INSULIN GLARGINE 100 UNITS/ML VIAL SQ SCH (21:45)
[2020-06-20] VITALS (25 sets, daily range): BP systolic 93–139; BP diastolic 44–61
[2020-06-20] MEDS: INSULIN REGULAR, HUMAN 100 UNIT/1 ML 3ML VIAL SQ SCH ×4 (00:37→17:59)
[2020-06-20 04:46] LABS: BASOPHILS # (AUTO) 0.1 (0.0-0.1); BASOPHILS % 0.3 % (0.0-1.0); EOSINOPHILS % 0.2 % (0.0-6.0); HEMATOCRIT 43.3 % (34.2-44.1); HEMOGLOBIN 13.4 g/dL (12.0-16.0); LYMPHOCYTES # (AUTO) 1.4 (1.0-3.2); LYMPHOCYTES % 7.2 % (18.0-39.1); MEAN CORPUSCULAR HGB CONC 30.9 g/dL (31-35); MEAN CORPUSCULAR VOLUME 96.9 fL (81-99); MONOCYTES # (AUTO) 0.9 (0.2-0.8); MONOCYTES % 4.7 % (4.4-11.3); NEUTROPHILS # (AUTO) 16.1 (2.1-6.9); NEUTROPHILS % 84.4 % (38.7-80.0); PLATELET COUNT 143 x10e3/uL (140-360); RED BLOOD COUNT 4.47 x10e6/uL (3.6-5.1); RED CELL DISTRIBUTION WIDTH 13.9 % (11.7-14.4)
[2020-06-20] MEDS: ACETAMINOPHEN 325 MG TAB PO PRN (04:48)
[2020-06-20 05:06] LABS: ALANINE AMINOTRANSFERASE 18 IU/L (0-55); ALBUMIN 1.6 g/dL (3.5-5.0); ALBUMIN/GLOBULIN RATIO 0.4 (0.8-2.0); ALKALINE PHOSPHATASE 126 IU/L (40-150); ANION GAP 12.5 mmol/L (8-16); BLOOD UREA NITROGEN 21 mg/dL (7-26); BUN/CREATININE RATIO 24 (6-25); CALCIUM 7.8 mg/dL (8.4-10.2); CARBON DIOXIDE 27 mmol/L (22-29); CHLORIDE 109 mmol/L (98-107); CREATININE, SERUM 0.89 mg/dL (0.57-1.11); EST GLOMERULAR FILTRATION RATE > 60 ML/MIN (60-); GLUCOSE 245 mg/dL (74-118); POTASSIUM 4.5 mmol/L (3.5-5.1); SODIUM 144 mmol/L (136-145)
[2020-06-20] MEDS: MEROPENEM 1GM 100 ML IV SCH ×3 (05:58→21:37)
[2020-06-20] MEDS: ENOXAPARIN SODIUM INJ 100 MG/ML SYR SC SCH ×2 (05:58→17:37)
[2020-06-20] MEDS: FENTANYL 2000MCG/NS 250 250 ML IV SCH ×2 (06:00→20:52)
[2020-06-20] MEDS: FAMOTIDINE 20 MG TAB PO SCH ×2 (08:35→17:05)
[2020-06-20 08:48] LABS: ABG PCO2 52 mmHg (35-45); ABG PH 7.36 (7.35-7.45); ABG PO2 87 mmHg (80-105)
[2020-06-20 08:49] LABS: ABG HCO3 29 mmol/L (22-26); ABG TCO2 31
[2020-06-20] MEDS: ASCORBIC ACID 500 MG TAB PO SCH ×2 (09:19→17:05)
[2020-06-20] MEDS: NOREPINEPHRINE 8 MG/D5W 250 ML 250 ML IV SCH (09:19)
[2020-06-20] MEDS: DOCUSATE SODIUM 100 MG CAP PO SCH ×2 (09:19→17:05)
[2020-06-20] MEDS: ZINC SULFATE 220 MG CAP PO SCH (09:19)
[2020-06-20] MEDS: CHOLECALCIFEROL 400 UNIT TAB PO SCH (09:19)
[2020-06-20] MEDS: PROPOFOL IV EMULSION 10MG/ML 100 ML IV SCH (12:30)
[2020-06-20] MEDS: FUROSEMIDE INJ 10 MG/ML 4 ML VIAL IV SCH ×2 (14:57→21:36)
[2020-06-20] MEDS: ALBUMIN 25% 25GM 100ML 0.25 GM/ML BTL IV SCH ×2 (14:57→21:37)
[2020-06-20] MEDS: MIDAZOLAM HCL 5MG/ML 10ML VIAL 100 ML IV PRN (20:53)
[2020-06-20] MEDS: INSULIN GLARGINE 100 UNITS/ML VIAL SQ SCH (20:54)
[2020-06-21] VITALS (27 sets, daily range): BP systolic 100–180; BP diastolic 42–101
[2020-06-21] MEDS: INSULIN REGULAR, HUMAN 100 UNIT/1 ML 3ML VIAL SQ SCH ×5 (00:19→22:32)
[2020-06-21] MEDS ORDERED: VASOPRESSIN 60 UNIT in DEXTROSE 5% 50ML 57 ML IV PRN (00:30)
[2020-06-21 05:07] LABS: BASOPHILS % 0.3 % (0.0-1.0); EOSINOPHILS # (AUTO) 0.3 (0.0-0.4); EOSINOPHILS % 2.1 % (0.0-6.0); HEMATOCRIT 37.5 % (34.2-44.1); HEMOGLOBIN 11.5 g/dL (12.0-16.0); LYMPHOCYTES # (AUTO) 1.8 (1.0-3.2); LYMPHOCYTES % 12.2 % (18.0-39.1); MEAN CORPUSCULAR HEMOGLOBIN 28.8 pg (28-32); MEAN CORPUSCULAR HGB CONC 30.7 g/dL (31-35); MONOCYTES # (AUTO) 0.7 (0.2-0.8); MONOCYTES % 4.5 % (4.4-11.3); NEUTROPHILS # (AUTO) 11.8 (2.1-6.9); NEUTROPHILS % 79.2 % (38.7-80.0); PLATELET COUNT 160 x10e3/uL (140-360); RED BLOOD COUNT 3.99 x10e6/uL (3.6-5.1)
[2020-06-21] MEDS: MEROPENEM 1GM 100 ML IV SCH ×3 (05:26→22:09)
[2020-06-21] MEDS: ALBUMIN 25% 25GM 100ML 0.25 GM/ML BTL IV SCH (05:26)
[2020-06-21 05:32] LABS: ALANINE AMINOTRANSFERASE 19 IU/L (0-55); ALBUMIN 2.3 g/dL (3.5-5.0); ALBUMIN/GLOBULIN RATIO 0.7 (0.8-2.0); ALKALINE PHOSPHATASE 109 IU/L (40-150); ANION GAP 13.9 mmol/L (8-16); BLOOD UREA NITROGEN 20 mg/dL (7-26); BUN/CREATININE RATIO 24 (6-25); CARBON DIOXIDE 32 mmol/L (22-29); CHLORIDE 103 mmol/L (98-107); CREATININE, SERUM 0.84 mg/dL (0.57-1.11); EST GLOMERULAR FILTRATION RATE > 60 ML/MIN (60-); GLUCOSE 190 mg/dL (74-118); POTASSIUM 3.9 mmol/L (3.5-5.1); SODIUM 145 mmol/L (136-145)
[2020-06-21] MEDS: ENOXAPARIN SODIUM INJ 100 MG/ML SYR SC SCH ×2 (05:39→17:42)
[2020-06-21] MEDS: ZINC SULFATE 220 MG CAP PO SCH (09:29)
[2020-06-21] MEDS: ASCORBIC ACID 500 MG TAB PO SCH ×2 (09:29→17:42)
[2020-06-21] MEDS: FAMOTIDINE 20 MG TAB PO SCH ×2 (09:29→16:16)
[2020-06-21] MEDS: DOCUSATE SODIUM 100 MG CAP PO SCH ×2 (09:29→17:42)
[2020-06-21] MEDS: CHOLECALCIFEROL 400 UNIT TAB PO SCH (09:29)
[2020-06-21] MEDS: NOREPINEPHRINE 8 MG/D5W 250 ML 250 ML IV SCH (09:30)
[2020-06-21 11:08] LABS: ABG HCO3 29 mmol/L (22-26); ABG PCO2 39 mmHg (35-45); ABG PH 7.48 (7.35-7.45); ABG PO2 85 mmHg (80-105)
[2020-06-21] MEDS: PROPOFOL IV EMULSION 10MG/ML 100 ML IV SCH (12:30)
[2020-06-21] MEDS ORDERED: ACETAMINOPHEN 1000 MG/100 ML IV STA (12:45)
[2020-06-21] MEDS: ROCURONIUM BROMIDE 1,250 MG in SODIUM CHLORIDE 0.9% 250ML 125 ML IV SCH (18:05)
[2020-06-21] MEDS: MIDAZOLAM HCL 5MG/ML 10ML VIAL 100 ML IV PRN (20:00)
[2020-06-21] MEDS: INSULIN GLARGINE 100 UNITS/ML VIAL SQ SCH (21:00)
[2020-06-22] VITALS (22 sets, daily range): BP systolic 91–122; BP diastolic 45–56
[2020-06-22] MEDS: MEROPENEM 1GM 100 ML IV SCH ×3 (05:19→22:00)
[2020-06-22] MEDS: ENOXAPARIN SODIUM INJ 100 MG/ML SYR SC SCH ×2 (05:19→18:05)
[2020-06-22] MEDS: INSULIN REGULAR, HUMAN 100 UNIT/1 ML 3ML VIAL SQ SCH ×4 (06:29→23:44)
[2020-06-22 06:37] LABS: BASOPHILS # (AUTO) 0.1 (0.0-0.1); BASOPHILS % 0.4 % (0.0-1.0); EOSINOPHILS # (AUTO) 0.3 (0.0-0.4); EOSINOPHILS % 1.8 % (0.0-6.0); HEMATOCRIT 37.3 % (34.2-44.1); HEMOGLOBIN 11.1 g/dL (12.0-16.0); MEAN CORPUSCULAR HEMOGLOBIN 29.2 pg (28-32); MEAN CORPUSCULAR HGB CONC 29.8 g/dL (31-35); MEAN CORPUSCULAR VOLUME 98.2 fL (81-99); MONOCYTES # (AUTO) 0.6 (0.2-0.8); MONOCYTES % 4.3 % (4.4-11.3); NEUTROPHILS # (AUTO) 11.6 (2.1-6.9); PLATELET COUNT 161 x10e3/uL (140-360); RED CELL DISTRIBUTION WIDTH 14.2 % (11.7-14.4)
[2020-06-22 07:02] LABS: ALANINE AMINOTRANSFERASE 17 IU/L (0-55); ALBUMIN/GLOBULIN RATIO 0.6 (0.8-2.0); ALKALINE PHOSPHATASE 101 IU/L (40-150); ANION GAP 13.3 mmol/L (8-16); BLOOD UREA NITROGEN 22 mg/dL (7-26); BUN/CREATININE RATIO 29 (6-25); CARBON DIOXIDE 32 mmol/L (22-29); CHLORIDE 103 mmol/L (98-107); CREATININE, SERUM 0.77 mg/dL (0.57-1.11); EST GLOMERULAR FILTRATION RATE > 60 ML/MIN (60-); GLUCOSE 257 mg/dL (74-118); POTASSIUM 4.3 mmol/L (3.5-5.1); SODIUM 144 mmol/L (136-145)
[2020-06-22 08:21] LABS: ABG HCO3 34 mmol/L (22-26); ABG PCO2 55 mmHg (35-45); ABG PO2 74 mmHg (80-105); ABG TCO2 36
[2020-06-22] MEDS: ASCORBIC ACID 500 MG TAB PO SCH ×2 (09:11→17:09)
[2020-06-22] MEDS: CHOLECALCIFEROL 400 UNIT TAB PO SCH (09:11)
[2020-06-22] MEDS: FAMOTIDINE 20 MG TAB PO SCH ×2 (09:11→17:09)
[2020-06-22] MEDS: ZINC SULFATE 220 MG CAP PO SCH (09:11)
[2020-06-22] MEDS: DOCUSATE SODIUM 100 MG CAP PO SCH ×2 (09:11→17:09)
[2020-06-22] MEDS: PROPOFOL IV EMULSION 10MG/ML 100 ML IV SCH (12:30)
[2020-06-22] MEDS: FENTANYL 2000MCG/NS 250 250 ML IV SCH ×2 (12:30→22:00)
[2020-06-22] MEDS: NOREPINEPHRINE 8 MG/D5W 250 ML 250 ML IV SCH (12:45)
[2020-06-22] MEDS ORDERED: FUROSEMIDE INJ 10 MG/ML 4 ML VIAL IV ONE (13:15)
[2020-06-22] MEDS ORDERED: MIDAZOLAM HCL 5MG/ML 10ML VIAL 100 ML BAG IV ONE (13:21)
[2020-06-22] MEDS ORDERED: FENTANYL 2,000 MCG/250 ML BAG ONE (13:21)
[2020-06-22] MEDS ORDERED: ALBUMIN 25% 25GM 100ML 0.25 GM/ML BTL IV SCH (14:00)
[2020-06-22] MEDS: ACETAZOLAMIDE 250 MG TAB PO SCH ×2 (14:52→22:00)
[2020-06-22] MEDS: ALBUMIN 25% 25GM 100ML 100 ML IV SCH ×2 (14:52→20:44)
[2020-06-22] MEDS: ROCURONIUM BROMIDE 1,250 MG in SODIUM CHLORIDE 0.9% 250ML 125 ML IV SCH (17:45)
[2020-06-22] MEDS: INSULIN GLARGINE 100 UNITS/ML VIAL SQ SCH (20:44)
[2020-06-23] VITALS (25 sets, daily range): BP systolic 80–121; BP diastolic 44–57
[2020-06-23] MEDS: MEROPENEM 1GM 100 ML IV SCH ×3 (05:35→21:16)
[2020-06-23] MEDS: ALBUMIN 25% 25GM 100ML 100 ML IV SCH (05:35)
[2020-06-23] MEDS: ENOXAPARIN SODIUM INJ 100 MG/ML SYR SC SCH ×2 (05:35→17:50)
[2020-06-23] MEDS: ACETAZOLAMIDE 250 MG TAB PO SCH ×2 (05:35→14:27)
[2020-06-23] MEDS: INSULIN REGULAR, HUMAN 100 UNIT/1 ML 3ML VIAL SQ SCH ×3 (05:36→17:51)
[2020-06-23] MEDS: FENTANYL 2000MCG/NS 250 250 ML IV SCH ×2 (05:48→20:18)
[2020-06-23 06:18] LABS: BASOPHILS # (AUTO) 0.1 (0.0-0.1); BASOPHILS % 0.4 % (0.0-1.0); EOSINOPHILS # (AUTO) 0.2 (0.0-0.4); EOSINOPHILS % 1.9 % (0.0-6.0); HEMATOCRIT 35.1 % (34.2-44.1); HEMOGLOBIN 10.5 g/dL (12.0-16.0); LYMPHOCYTES # (AUTO) 0.9 (1.0-3.2); LYMPHOCYTES % 7.2 % (18.0-39.1); MEAN CORPUSCULAR HEMOGLOBIN 29.6 pg (28-32); MEAN CORPUSCULAR HGB CONC 29.9 g/dL (31-35); MEAN CORPUSCULAR VOLUME 98.9 fL (81-99); MONOCYTES # (AUTO) 0.5 (0.2-0.8); MONOCYTES % 4.2 % (4.4-11.3); NEUTROPHILS # (AUTO) 10.5 (2.1-6.9); NEUTROPHILS % 84.8 % (38.7-80.0); PLATELET COUNT 175 x10e3/uL (140-360); RED BLOOD COUNT 3.55 x10e6/uL (3.6-5.1); RED CELL DISTRIBUTION WIDTH 14.2 % (11.7-14.4)
[2020-06-23 06:49] LABS: ALANINE AMINOTRANSFERASE 24 IU/L (0-55); ALBUMIN 2.2 g/dL (3.5-5.0); ALBUMIN/GLOBULIN RATIO 0.6 (0.8-2.0); ALKALINE PHOSPHATASE 109 IU/L (40-150); BLOOD UREA NITROGEN 29 mg/dL (7-26); BUN/CREATININE RATIO 37 (6-25); CALCIUM 8.2 mg/dL (8.4-10.2); CARBON DIOXIDE 33 mmol/L (22-29); CHLORIDE 101 mmol/L (98-107); CREATININE, SERUM 0.78 mg/dL (0.57-1.11); EST GLOMERULAR FILTRATION RATE > 60 ML/MIN (60-); GLUCOSE 292 mg/dL (74-118); SODIUM 143 mmol/L (136-145)
[2020-06-23] MEDS: FAMOTIDINE 20 MG TAB PO SCH ×2 (07:52→17:10)
[2020-06-23 08:17] LABS: ABG HCO3 35 mmol/L (22-26); ABG PCO2 73 mmHg (35-45); ABG PH 7.29 (7.35-7.45); ABG PO2 61 mmHg (80-105); ABG TCO2 37
[2020-06-23] MEDS: ZINC SULFATE 220 MG CAP PO SCH (09:16)
[2020-06-23] MEDS: DOCUSATE SODIUM 100 MG CAP PO SCH ×2 (09:16→17:11)
[2020-06-23] MEDS: ASCORBIC ACID 500 MG TAB PO SCH ×2 (09:16→17:11)
[2020-06-23] MEDS: CHOLECALCIFEROL 400 UNIT TAB PO SCH (09:16)
[2020-06-23] MEDS ORDERED: FUROSEMIDE INJ 10 MG/ML 4 ML VIAL IV ONE (11:30)
[2020-06-23] MEDS: PROPOFOL IV EMULSION 10MG/ML 100 ML IV SCH (12:30)
[2020-06-23] MEDS: ROCURONIUM BROMIDE 1,250 MG in SODIUM CHLORIDE 0.9% 250ML 125 ML IV SCH (17:45)
[2020-06-23] MEDS: MIDAZOLAM HCL 5MG/ML 10ML VIAL 100 ML IV PRN ×2 (20:19)
[2020-06-23] MEDS: INSULIN GLARGINE 100 UNITS/ML VIAL SQ SCH (21:16)
[2020-06-24] VITALS (19 sets, daily range): BP systolic 95–141; BP diastolic 48–68
[2020-06-24] MEDS: INSULIN REGULAR, HUMAN 100 UNIT/1 ML 3ML VIAL SQ SCH ×4 (00:02→17:38)
[2020-06-24] MEDS: FENTANYL 2000MCG/NS 250 250 ML IV SCH ×2 (03:00→19:30)
[2020-06-24] MEDS: MEROPENEM 1GM 100 ML IV SCH ×3 (05:50→21:54)
[2020-06-24] MEDS: ENOXAPARIN SODIUM INJ 100 MG/ML SYR SC SCH ×2 (05:50→16:07)
[2020-06-24 06:01] LABS: BASOPHILS # (AUTO) 0.1 (0.0-0.1); BASOPHILS % 0.4 % (0.0-1.0); EOSINOPHILS # (AUTO) 0.3 (0.0-0.4); EOSINOPHILS % 1.8 % (0.0-6.0); HEMATOCRIT 34.5 % (34.2-44.1); HEMOGLOBIN 10.5 g/dL (12.0-16.0); LYMPHOCYTES # (AUTO) 1.2 (1.0-3.2); LYMPHOCYTES % 8.7 % (18.0-39.1); MEAN CORPUSCULAR HEMOGLOBIN 30.1 pg (28-32); MEAN CORPUSCULAR HGB CONC 30.4 g/dL (31-35); MEAN CORPUSCULAR VOLUME 98.9 fL (81-99); MONOCYTES # (AUTO) 0.6 (0.2-0.8); MONOCYTES % 4.7 % (4.4-11.3); NEUTROPHILS # (AUTO) 11.4 (2.1-6.9); NEUTROPHILS % 82.9 % (38.7-80.0); PLATELET COUNT 249 x10e3/uL (140-360); RED BLOOD COUNT 3.49 x10e6/uL (3.6-5.1); RED CELL DISTRIBUTION WIDTH 14.3 % (11.7-14.4)
[2020-06-24 06:10] LABS: INR 1.2
[2020-06-24 06:27] LABS: ALANINE AMINOTRANSFERASE 25 IU/L (0-55); ALBUMIN 2.1 g/dL (3.5-5.0); ALBUMIN/GLOBULIN RATIO 0.5 (0.8-2.0); ALKALINE PHOSPHATASE 136 IU/L (40-150); ANION GAP 11.7 mmol/L (8-16); BLOOD UREA NITROGEN 32 mg/dL (7-26); BUN/CREATININE RATIO 44 (6-25); CALCIUM 8.5 mg/dL (8.4-10.2); CARBON DIOXIDE 33 mmol/L (22-29); CHLORIDE 102 mmol/L (98-107); CREATININE, SERUM 0.73 mg/dL (0.57-1.11); EST GLOMERULAR FILTRATION RATE > 60 ML/MIN (60-); GLUCOSE 288 mg/dL (74-118); POTASSIUM 3.7 mmol/L (3.5-5.1); SODIUM 143 mmol/L (136-145)
[2020-06-24] MEDS: CHOLECALCIFEROL 400 UNIT TAB PO SCH (08:22)
[2020-06-24] MEDS: FAMOTIDINE 20 MG TAB PO SCH ×2 (08:22→16:06)
[2020-06-24] MEDS: ZINC SULFATE 220 MG CAP PO SCH (08:22)
[2020-06-24] MEDS: DOCUSATE SODIUM 100 MG CAP PO SCH ×2 (08:22→16:06)
[2020-06-24] MEDS: ASCORBIC ACID 500 MG TAB PO SCH ×2 (08:22→16:06)
[2020-06-24 08:43] LABS: ABG PH 7.36 (7.35-7.45)
[2020-06-24 08:44] LABS: ABG HCO3 35 mmol/L (22-26); ABG PCO2 62 mmHg (35-45); ABG PO2 73 mmHg (80-105); ABG TCO2 36
[2020-06-24] MEDS: ALBUMIN 25% 25GM 100ML 0.25 GM/ML BTL IV SCH ×2 (14:03→21:52)
[2020-06-24] MEDS: FUROSEMIDE INJ 10 MG/ML 4 ML VIAL IV SCH ×2 (14:03→21:53)
[2020-06-24] MEDS: ACETAZOLAMIDE 250 MG TAB PO SCH (16:06)
[2020-06-24] MEDS: NOREPINEPHRINE 8 MG/D5W 250 ML 250 ML IV SCH (19:13)
[2020-06-24] MEDS: ROCURONIUM BROMIDE 1,250 MG in SODIUM CHLORIDE 0.9% 250ML 125 ML IV SCH (19:13)
[2020-06-24] MEDS: INSULIN GLARGINE 100 UNITS/ML VIAL SQ SCH (21:54)
[2020-06-24 22:45] LABS: ABG PCO2 83 mmHg (35-45); ABG PH 7.24 (7.35-7.45); ABG PO2 43 mmHg (80-105)
[2020-06-24 22:46] LABS: ABG HCO3 36 mmol/L (22-26); ABG TCO2 39
[2020-06-25] VITALS (25 sets, daily range): BP systolic 92–136; BP diastolic 50–84
[2020-06-25] MEDS: MIDAZOLAM HCL 5MG/ML 10ML VIAL 100 ML IV PRN ×5 (00:09→20:56)
[2020-06-25] MEDS: INSULIN REGULAR, HUMAN 100 UNIT/1 ML 3ML VIAL SQ SCH ×4 (00:29→17:41)
[2020-06-25] MEDS: ENOXAPARIN SODIUM INJ 100 MG/ML SYR SC SCH ×2 (05:56→17:40)
[2020-06-25] MEDS: ALBUMIN 25% 25GM 100ML 0.25 GM/ML BTL IV SCH (05:56)
[2020-06-25] MEDS: MEROPENEM 1GM 100 ML IV SCH ×3 (05:56→22:06)
[2020-06-25 06:25] LABS: BASOPHILS # (AUTO) 0.1 (0.0-0.1); BASOPHILS % 0.5 % (0.0-1.0); EOSINOPHILS # (AUTO) 0.1 (0.0-0.4); EOSINOPHILS % 0.8 % (0.0-6.0); HEMATOCRIT 34.6 % (34.2-44.1); HEMOGLOBIN 10.5 g/dL (12.0-16.0); LYMPHOCYTES # (AUTO) 1.5 (1.0-3.2); LYMPHOCYTES % 9.5 % (18.0-39.1); MEAN CORPUSCULAR HEMOGLOBIN 30.4 pg (28-32); MEAN CORPUSCULAR HGB CONC 30.3 g/dL (31-35); MEAN CORPUSCULAR VOLUME 100.3 fL (81-99); MONOCYTES # (AUTO) 0.8 (0.2-0.8); MONOCYTES % 5.2 % (4.4-11.3); NEUTROPHILS # (AUTO) 13.2 (2.1-6.9); NEUTROPHILS % 82.9 % (38.7-80.0); PLATELET COUNT 269 x10e3/uL (140-360); RED BLOOD COUNT 3.45 x10e6/uL (3.6-5.1); RED CELL DISTRIBUTION WIDTH 14.3 % (11.7-14.4)
[2020-06-25 07:14] LABS: ALANINE AMINOTRANSFERASE 45 IU/L (0-55); ALBUMIN 2.4 g/dL (3.5-5.0); ALBUMIN/GLOBULIN RATIO 0.6 (0.8-2.0); ALKALINE PHOSPHATASE 206 IU/L (40-150); BLOOD UREA NITROGEN 38 mg/dL (7-26); BUN/CREATININE RATIO 48 (6-25); CALCIUM 8.8 mg/dL (8.4-10.2); CARBON DIOXIDE 35 mmol/L (22-29); CHLORIDE 101 mmol/L (98-107); EST GLOMERULAR FILTRATION RATE > 60 ML/MIN (60-); GLUCOSE 306 mg/dL (74-118); SODIUM 144 mmol/L (136-145)
[2020-06-25 08:33] LABS: ABG PCO2 75 mmHg (35-45); ABG PH 7.31 (7.35-7.45)
[2020-06-25 08:34] LABS: ABG HCO3 38 mmol/L (22-26); ABG PO2 53 mmHg (80-105); ABG TCO2 40
[2020-06-25] MEDS: ZINC SULFATE 220 MG CAP PO SCH (08:58)
[2020-06-25] MEDS: FUROSEMIDE INJ 10 MG/ML 4 ML VIAL IV SCH (08:58)
[2020-06-25] MEDS: CHOLECALCIFEROL 400 UNIT TAB PO SCH (08:58)
[2020-06-25] MEDS: ASCORBIC ACID 500 MG TAB PO SCH ×2 (08:58→17:00)
[2020-06-25] MEDS: ACETAZOLAMIDE 250 MG TAB PO SCH ×2 (08:58→17:00)
[2020-06-25] MEDS: FAMOTIDINE 20 MG TAB PO SCH ×2 (08:58→16:31)
[2020-06-25] MEDS: DOCUSATE SODIUM 100 MG CAP PO SCH ×2 (08:58→17:00)
[2020-06-25] MEDS: FENTANYL 2000MCG/NS 250 250 ML IV SCH ×3 (09:52→23:00)
[2020-06-25] MEDS: NOREPINEPHRINE 8 MG/D5W 250 ML 250 ML IV SCH (12:08)
[2020-06-25] MEDS: ROCURONIUM BROMIDE 1,250 MG in SODIUM CHLORIDE 0.9% 250ML 125 ML IV SCH (17:45)
[2020-06-25] MEDS: INSULIN GLARGINE 100 UNITS/ML VIAL SQ SCH (20:56)
[2020-06-26] VITALS (24 sets, daily range): BP systolic 84–129; BP diastolic 47–62
[2020-06-26] MEDS: INSULIN REGULAR, HUMAN 100 UNIT/1 ML 3ML VIAL SQ SCH ×4 (00:08→18:01)
[2020-06-26] MEDS: MIDAZOLAM HCL 5MG/ML 10ML VIAL 100 ML IV PRN (03:03)
[2020-06-26 05:28] LABS: BASOPHILS # (AUTO) 0.1 (0.0-0.1); BASOPHILS % 0.7 % (0.0-1.0); EOSINOPHILS # (AUTO) 0.1 (0.0-0.4); EOSINOPHILS % 0.9 % (0.0-6.0); HEMATOCRIT 34.8 % (34.2-44.1); HEMOGLOBIN 10.3 g/dL (12.0-16.0); LYMPHOCYTES # (AUTO) 1.2 (1.0-3.2); LYMPHOCYTES % 8.8 % (18.0-39.1); MEAN CORPUSCULAR HEMOGLOBIN 30.3 pg (28-32); MEAN CORPUSCULAR HGB CONC 29.6 g/dL (31-35); MEAN CORPUSCULAR VOLUME 102.4 fL (81-99); MONOCYTES # (AUTO) 0.9 (0.2-0.8); MONOCYTES % 6.3 % (4.4-11.3); NEUTROPHILS # (AUTO) 11.3 (2.1-6.9); NEUTROPHILS % 82.3 % (38.7-80.0); PLATELET COUNT 244 x10e3/uL (140-360); RED CELL DISTRIBUTION WIDTH 14.6 % (11.7-14.4)
[2020-06-26 05:59] LABS: ALANINE AMINOTRANSFERASE 46 IU/L (0-55); ALBUMIN 2.3 g/dL (3.5-5.0); ALBUMIN/GLOBULIN RATIO 0.6 (0.8-2.0); ALKALINE PHOSPHATASE 255 IU/L (40-150); ANION GAP 13.1 mmol/L (8-16); BLOOD UREA NITROGEN 45 mg/dL (7-26); BUN/CREATININE RATIO 53 (6-25); CALCIUM 8.6 mg/dL (8.4-10.2); CARBON DIOXIDE 35 mmol/L (22-29); CHLORIDE 103 mmol/L (98-107); CREATININE, SERUM 0.85 mg/dL (0.57-1.11); EST GLOMERULAR FILTRATION RATE > 60 ML/MIN (60-); GLUCOSE 323 mg/dL (74-118); POTASSIUM 4.1 mmol/L (3.5-5.1); SODIUM 147 mmol/L (136-145)
[2020-06-26] MEDS: MEROPENEM 1GM 100 ML IV SCH ×3 (06:16→21:17)
[2020-06-26] MEDS: ENOXAPARIN SODIUM INJ 100 MG/ML SYR SC SCH ×2 (06:16→17:54)
[2020-06-26 08:51] LABS: ABG HCO3 35 mmol/L (22-26); ABG PCO2 69 mmHg (35-45); ABG PH 7.32 (7.35-7.45); ABG PO2 73 mmHg (80-105); ABG TCO2 37
[2020-06-26] MEDS: ZINC SULFATE 220 MG CAP PO SCH (09:07)
[2020-06-26] MEDS: DOCUSATE SODIUM 100 MG CAP PO SCH ×2 (09:07→17:18)
[2020-06-26] MEDS: CHOLECALCIFEROL 400 UNIT TAB PO SCH (09:07)
[2020-06-26] MEDS: ACETAZOLAMIDE 250 MG TAB PO SCH ×3 (09:07→20:45)
[2020-06-26] MEDS: FAMOTIDINE 20 MG TAB PO SCH ×2 (09:07→16:21)
[2020-06-26] MEDS: ASCORBIC ACID 500 MG TAB PO SCH ×2 (09:07→17:18)
[2020-06-26] MEDS ORDERED: ALBUMIN 25% 25GM 100ML 0.25 GM/ML BTL IV SCH (10:30)
[2020-06-26] MEDS: ALBUMIN 25% 25GM 100ML 100 ML IV SCH ×2 (11:08→17:54)
[2020-06-26] MEDS: NOREPINEPHRINE 8 MG/D5W 250 ML 250 ML IV SCH (11:15)
[2020-06-26] MEDS: ROCURONIUM BROMIDE 1,250 MG in SODIUM CHLORIDE 0.9% 250ML 125 ML IV SCH (11:16)
[2020-06-26] MEDS: FUROSEMIDE INJ 100 MG in SODIUM CHLORIDE 0.9% 100 ML 90 ML IV SCH (11:45)
[2020-06-26 16:48] LABS: CLARITY,URINE SL CLOUDY (CLEAR); COLOR,URINE YELLOW (YELLOW); LEUKOCYTE ESTERASE ,URINE TRACE (NEGATIVE); NITRITE,URINE NEGATIVE (NEGATIVE)
[2020-06-26 16:49] LABS: KETONES,URINE NEGATIVE (NEGATIVE); PROTEIN,URINE DIPSTICK 2+ (NEGATIVE); URINE UROBILINOGEN 2 mg/dL (0.2 - 1)
[2020-06-26 16:57] LABS: AMORPHOUS SEDIMENT,URINE MODERATE (FEW); BACTERIA,URINE MANY /HPF; RBC,URINE 0-5 /HPF (0-5)
[2020-06-26] MEDS: FENTANYL 2000MCG/NS 250 250 ML IV SCH (19:33)
[2020-06-26] MEDS: INSULIN GLARGINE 100 UNITS/ML VIAL SQ SCH (20:45)
[2020-06-27] VITALS (25 sets, daily range): BP systolic 92–121; BP diastolic 39–60
[2020-06-27] MEDS: INSULIN REGULAR, HUMAN 100 UNIT/1 ML 3ML VIAL SQ SCH ×5 (00:30→23:37)
[2020-06-27] MEDS: MIDAZOLAM HCL 5MG/ML 10ML VIAL 100 ML IV PRN ×2 (01:26→20:08)
[2020-06-27] MEDS: ALBUMIN 25% 25GM 100ML 100 ML IV SCH ×3 (02:18→22:19)
[2020-06-27] MEDS: FENTANYL 2000MCG/NS 250 250 ML IV SCH (03:00)
[2020-06-27] MEDS: ENOXAPARIN SODIUM INJ 100 MG/ML SYR SC SCH ×2 (06:14→17:44)
[2020-06-27] MEDS: MEROPENEM 1GM 100 ML IV SCH ×3 (06:14→22:19)
[2020-06-27 06:21] LABS: BASOPHILS # (AUTO) 0.1 (0.0-0.1); BASOPHILS % 0.7 % (0.0-1.0); EOSINOPHILS # (AUTO) 0.2 (0.0-0.4); EOSINOPHILS % 1.4 % (0.0-6.0); HEMATOCRIT 34.1 % (34.2-44.1); HEMOGLOBIN 9.8 g/dL (12.0-16.0); LYMPHOCYTES # (AUTO) 1.2 (1.0-3.2); LYMPHOCYTES % 8.8 % (18.0-39.1); MEAN CORPUSCULAR HEMOGLOBIN 29.6 pg (28-32); MEAN CORPUSCULAR HGB CONC 28.7 g/dL (31-35); MONOCYTES # (AUTO) 0.9 (0.2-0.8); MONOCYTES % 6.8 % (4.4-11.3); NEUTROPHILS # (AUTO) 11.3 (2.1-6.9); NEUTROPHILS % 81.3 % (38.7-80.0); PLATELET COUNT 270 x10e3/uL (140-360); RED BLOOD COUNT 3.31 x10e6/uL (3.6-5.1); RED CELL DISTRIBUTION WIDTH 14.9 % (11.7-14.4)
[2020-06-27 06:48] LABS: ALANINE AMINOTRANSFERASE 34 IU/L (0-55); ALBUMIN 2.9 g/dL (3.5-5.0); ALBUMIN/GLOBULIN RATIO 0.7 (0.8-2.0); ALKALINE PHOSPHATASE 219 IU/L (40-150); ANION GAP 14.2 mmol/L (8-16); BLOOD UREA NITROGEN 47 mg/dL (7-26); BUN/CREATININE RATIO 56 (6-25); CALCIUM 8.7 mg/dL (8.4-10.2); CARBON DIOXIDE 35 mmol/L (22-29); CHLORIDE 101 mmol/L (98-107); CREATININE, SERUM 0.84 mg/dL (0.57-1.11); EST GLOMERULAR FILTRATION RATE > 60 ML/MIN (60-); GLUCOSE 341 mg/dL (74-118); POTASSIUM 4.2 mmol/L (3.5-5.1); SODIUM 146 mmol/L (136-145)
[2020-06-27] MEDS: FAMOTIDINE 20 MG TAB PO SCH ×2 (07:31→16:45)
[2020-06-27] MEDS: FUROSEMIDE INJ 100 MG in SODIUM CHLORIDE 0.9% 100 ML 90 ML IV SCH (07:31)
[2020-06-27 08:56] LABS: ABG HCO3 37 mmol/L (22-26); ABG PCO2 84 mmHg (35-45); ABG PH 7.25 (7.35-7.45); ABG PO2 43 mmHg (80-105); ABG TCO2 39
[2020-06-27] MEDS: ASCORBIC ACID 500 MG TAB PO SCH ×2 (09:04→16:46)
[2020-06-27] MEDS: CHOLECALCIFEROL 400 UNIT TAB PO SCH (09:04)
[2020-06-27] MEDS: ACETAZOLAMIDE 250 MG TAB PO SCH (09:04)
[2020-06-27] MEDS: DOCUSATE SODIUM 100 MG CAP PO SCH ×2 (09:04→16:46)
[2020-06-27] MEDS: HYDROCHLOROTHIAZIDE 25 MG TAB PO SCH (09:04)
[2020-06-27] MEDS: ZINC SULFATE 220 MG CAP PO SCH (09:05)
[2020-06-27] MEDS ORDERED: ALBUMIN 25% 25GM 100ML 0.25 GM/ML BTL IV SCH (13:00)
[2020-06-27 14:44] LABS: ABG HCO3 37 mmol/L (22-26); ABG PCO2 73 mmHg (35-45); ABG PH 7.31 (7.35-7.45); ABG PO2 57 mmHg (80-105)
[2020-06-27 14:45] LABS: ABG TCO2 39
[2020-06-27] MEDS: NOREPINEPHRINE 8 MG/D5W 250 ML 250 ML IV SCH (16:46)
[2020-06-27] MEDS: ROCURONIUM BROMIDE 1,250 MG in SODIUM CHLORIDE 0.9% 250ML 125 ML IV SCH (17:45)
[2020-06-27] MEDS: ACETAMINOPHEN 325 MG TAB PO PRN (19:46)
[2020-06-27] MEDS: INSULIN GLARGINE 100 UNITS/ML VIAL SQ SCH (20:54)
[2020-06-28] VITALS (26 sets, daily range): BP systolic 93–122; BP diastolic 47–56
[2020-06-28] MEDS: FENTANYL 2000MCG/NS 250 250 ML IV SCH ×2 (00:52→20:00)
[2020-06-28] MEDS: MIDAZOLAM HCL 5MG/ML 10ML VIAL 100 ML IV PRN ×2 (03:24→23:00)
[2020-06-28] MEDS: FUROSEMIDE INJ 100 MG in SODIUM CHLORIDE 0.9% 100 ML 90 ML IV SCH (05:10)
[2020-06-28] MEDS: ENOXAPARIN SODIUM INJ 100 MG/ML SYR SC SCH ×2 (05:40→18:03)
[2020-06-28] MEDS: MEROPENEM 1GM 100 ML IV SCH ×3 (05:40→21:44)
[2020-06-28] MEDS: ALBUMIN 25% 25GM 100ML 100 ML IV SCH (05:40)
[2020-06-28] MEDS: INSULIN REGULAR, HUMAN 100 UNIT/1 ML 3ML VIAL SQ SCH ×3 (05:41→17:55)
[2020-06-28 06:01] LABS: BASOPHILS # (AUTO) 0.1 (0.0-0.1); BASOPHILS % 0.9 % (0.0-1.0); EOSINOPHILS # (AUTO) 0.3 (0.0-0.4); HEMATOCRIT 31.4 % (34.2-44.1); HEMOGLOBIN 9.4 g/dL (12.0-16.0); LYMPHOCYTES # (AUTO) 1.6 (1.0-3.2); LYMPHOCYTES % 12.1 % (18.0-39.1); MEAN CORPUSCULAR HEMOGLOBIN 29.7 pg (28-32); MEAN CORPUSCULAR HGB CONC 29.9 g/dL (31-35); MEAN CORPUSCULAR VOLUME 99.4 fL (81-99); MONOCYTES # (AUTO) 0.9 (0.2-0.8); MONOCYTES % 6.4 % (4.4-11.3); NEUTROPHILS # (AUTO) 10.3 (2.1-6.9); NEUTROPHILS % 77.2 % (38.7-80.0); PLATELET COUNT 270 x10e3/uL (140-360); RED BLOOD COUNT 3.16 x10e6/uL (3.6-5.1); RED CELL DISTRIBUTION WIDTH 14.6 % (11.7-14.4)
[2020-06-28 06:31] LABS: ALBUMIN 2.9 g/dL (3.5-5.0); ALBUMIN/GLOBULIN RATIO 0.8 (0.8-2.0); ANION GAP 13.7 mmol/L (8-16); CALCIUM 8.8 mg/dL (8.4-10.2); CREATININE, SERUM 0.96 mg/dL (0.57-1.11); POTASSIUM 3.7 mmol/L (3.5-5.1)
[2020-06-28] MEDS: FAMOTIDINE 20 MG TAB PO SCH ×2 (08:03→16:20)
[2020-06-28 08:37] LABS: ABG HCO3 35 mmol/L (22-26); ABG PCO2 52 mmHg (35-45); ABG PH 7.44 (7.35-7.45); ABG PO2 66 mmHg (80-105); ABG TCO2 37
[2020-06-28] MEDS: DOCUSATE SODIUM 100 MG CAP PO SCH ×2 (11:28→17:10)
[2020-06-28] MEDS: ASCORBIC ACID 500 MG TAB PO SCH ×2 (11:28→17:10)
[2020-06-28] MEDS: HYDROCHLOROTHIAZIDE 25 MG TAB PO SCH (11:28)
[2020-06-28] MEDS: ZINC SULFATE 220 MG CAP PO SCH (11:28)
[2020-06-28] MEDS: CHOLECALCIFEROL 400 UNIT TAB PO SCH (11:28)
[2020-06-28] MEDS ORDERED: MIDAZOLAM HCL 5MG/ML 10ML VIAL 100 ML BAG IV ONE (12:02)
[2020-06-28] MEDS ORDERED: FENTANYL 2,000 MCG/250 ML BAG ONE (12:02)
[2020-06-28] MEDS: NOREPINEPHRINE 8 MG/D5W 250 ML 250 ML IV SCH (17:09)
[2020-06-28] MEDS: ROCURONIUM BROMIDE 1,250 MG in SODIUM CHLORIDE 0.9% 250ML 125 ML IV SCH (18:03)
[2020-06-28] MEDS: INSULIN GLARGINE 100 UNITS/ML VIAL SQ SCH (21:48)
[2020-06-29] VITALS (27 sets, daily range): BP systolic 87–119; BP diastolic 49–58
[2020-06-29] MEDS: INSULIN REGULAR, HUMAN 100 UNIT/1 ML 3ML VIAL SQ SCH ×4 (00:33→18:27)
[2020-06-29] MEDS: FUROSEMIDE INJ 100 MG in SODIUM CHLORIDE 0.9% 100 ML 90 ML IV SCH ×2 (01:34→10:15)
[2020-06-29] MEDS: ENOXAPARIN SODIUM INJ 100 MG/ML SYR SC SCH ×2 (05:20→17:51)
[2020-06-29 06:07] LABS: BASOPHILS # (AUTO) 0.2 (0.0-0.1); EOSINOPHILS # (AUTO) 0.2 (0.0-0.4); EOSINOPHILS % 0.9 % (0.0-6.0); HEMOGLOBIN 10.4 g/dL (12.0-16.0); LYMPHOCYTES # (AUTO) 1.9 (1.0-3.2); LYMPHOCYTES % 10.6 % (18.0-39.1); MEAN CORPUSCULAR HEMOGLOBIN 30.4 pg (28-32); MEAN CORPUSCULAR HGB CONC 28.9 g/dL (31-35); MEAN CORPUSCULAR VOLUME 105.3 fL (81-99); MONOCYTES # (AUTO) 1.1 (0.2-0.8); MONOCYTES % 5.9 % (4.4-11.3); NEUTROPHILS # (AUTO) 14.3 (2.1-6.9); NEUTROPHILS % 78.7 % (38.7-80.0); PLATELET COUNT 300 x10e3/uL (140-360); RED BLOOD COUNT 3.42 x10e6/uL (3.6-5.1); RED CELL DISTRIBUTION WIDTH 15.4 % (11.7-14.4)
[2020-06-29] MEDS: MEROPENEM 1GM 100 ML IV SCH (06:10)
[2020-06-29 06:44] LABS: ALBUMIN 2.9 g/dL (3.5-5.0); ALBUMIN/GLOBULIN RATIO 0.6 (0.8-2.0); ANION GAP 17.5 mmol/L (8-16); CALCIUM 8.8 mg/dL (8.4-10.2); CREATININE, SERUM 1.18 mg/dL (0.57-1.11); POTASSIUM 4.5 mmol/L (3.5-5.1)
[2020-06-29] MEDS: FAMOTIDINE 20 MG TAB PO SCH ×2 (08:06→16:47)
[2020-06-29] MEDS: ASCORBIC ACID 500 MG TAB PO SCH ×2 (08:44→17:20)
[2020-06-29] MEDS: DOCUSATE SODIUM 100 MG CAP PO SCH ×2 (08:44→17:20)
[2020-06-29] MEDS: CHOLECALCIFEROL 400 UNIT TAB PO SCH (08:44)
[2020-06-29] MEDS: ZINC SULFATE 220 MG CAP PO SCH (08:44)
[2020-06-29] MEDS: HYDROCHLOROTHIAZIDE 25 MG TAB PO SCH (08:44)
[2020-06-29 09:29] LABS: ABG PH 7.11 (7.35-7.45)
[2020-06-29 09:30] LABS: ABG HCO3 41 mmol/L (22-26); ABG PCO2 128 mmHg (35-45); ABG PO2 70 mmHg (80-105); ABG TCO2 45
[2020-06-29] MEDS: ALBUMIN 25% 25GM 100ML 0.25 GM/ML BTL IV SCH ×2 (10:12→17:51)
[2020-06-29] MEDS: MIDAZOLAM HCL 5MG/ML 10ML VIAL 100 ML IV PRN ×2 (10:50→21:44)
[2020-06-29 15:41] LABS: ABG PH 7.34 (7.35-7.45)
[2020-06-29 15:42] LABS: ABG HCO3 36 mmol/L (22-26); ABG PCO2 67 mmHg (35-45); ABG PO2 70 mmHg (80-105); ABG TCO2 38
[2020-06-29] MEDS: INSULIN GLARGINE 100 UNITS/ML VIAL SQ SCH (21:43)
[2020-06-29] MEDS: FENTANYL 2000MCG/NS 250 250 ML IV SCH (21:45)
[2020-06-30] VITALS (27 sets, daily range): BP systolic 92–131; BP diastolic 46–64
[2020-06-30] MEDS: ROCURONIUM BROMIDE 1,250 MG in SODIUM CHLORIDE 0.9% 250ML 125 ML IV SCH ×3 (00:04→18:47)
[2020-06-30] MEDS: INSULIN REGULAR, HUMAN 100 UNIT/1 ML 3ML VIAL SQ SCH ×4 (00:10→17:58)
[2020-06-30] MEDS: ALBUMIN 25% 25GM 100ML 0.25 GM/ML BTL IV SCH (02:20)
[2020-06-30] MEDS: MIDAZOLAM HCL 5MG/ML 10ML VIAL 100 ML IV PRN ×5 (02:21→23:45)
[2020-06-30] MEDS: NOREPINEPHRINE 8 MG/D5W 250 ML 250 ML IV SCH ×2 (02:22→13:23)
[2020-06-30] MEDS: FENTANYL 2000MCG/NS 250 250 ML IV SCH ×3 (04:38→17:58)
[2020-06-30] MEDS: FUROSEMIDE INJ 100 MG in SODIUM CHLORIDE 0.9% 100 ML 90 ML IV SCH ×5 (05:15→23:52)
[2020-06-30] MEDS: ENOXAPARIN SODIUM INJ 100 MG/ML SYR SC SCH ×2 (05:38→18:00)
[2020-06-30 06:07] LABS: BASOPHILS # (AUTO) 0.1 (0.0-0.1); BASOPHILS % 0.9 % (0.0-1.0); EOSINOPHILS # (AUTO) 0.5 (0.0-0.4); HEMATOCRIT 29.9 % (34.2-44.1); HEMOGLOBIN 9.1 g/dL (12.0-16.0); LYMPHOCYTES # (AUTO) 1.4 (1.0-3.2); LYMPHOCYTES % 11.2 % (18.0-39.1); MEAN CORPUSCULAR HEMOGLOBIN 29.5 pg (28-32); MEAN CORPUSCULAR HGB CONC 30.4 g/dL (31-35); MEAN CORPUSCULAR VOLUME 97.1 fL (81-99); MONOCYTES # (AUTO) 0.7 (0.2-0.8); MONOCYTES % 5.5 % (4.4-11.3); NEUTROPHILS # (AUTO) 9.6 (2.1-6.9); NEUTROPHILS % 76.9 % (38.7-80.0); PLATELET COUNT 245 x10e3/uL (140-360); RED BLOOD COUNT 3.08 x10e6/uL (3.6-5.1); RED CELL DISTRIBUTION WIDTH 14.7 % (11.7-14.4)
[2020-06-30 06:25] LABS: ALBUMIN 3.3 g/dL (3.5-5.0); ALBUMIN/GLOBULIN RATIO 0.8 (0.8-2.0); ANION GAP 17.4 mmol/L (8-16); CALCIUM 8.7 mg/dL (8.4-10.2); CREATININE, SERUM 1.3 mg/dL (0.57-1.11)
[2020-06-30 06:46] LABS: POTASSIUM 3.4 mmol/L (3.5-5.1)
[2020-06-30 08:04] LABS: ABG HCO3 41 mmol/L (22-26); ABG PCO2 68 mmHg (35-45); ABG PH 7.39 (7.35-7.45); ABG PO2 64 mmHg (80-105); ABG TCO2 43
[2020-06-30] MEDS: ASCORBIC ACID 500 MG TAB PO SCH ×2 (08:54→17:40)
[2020-06-30] MEDS: ZINC SULFATE 220 MG CAP PO SCH (08:54)
[2020-06-30] MEDS: CHOLECALCIFEROL 400 UNIT TAB PO SCH (08:54)
[2020-06-30] MEDS: DOCUSATE SODIUM 100 MG CAP PO SCH ×2 (08:54→17:00)
[2020-06-30] MEDS: HYDROCHLOROTHIAZIDE 25 MG TAB PO SCH (08:54)
[2020-06-30] MEDS: FAMOTIDINE 20 MG TAB PO SCH ×2 (08:54→17:40)
[2020-06-30] MEDS ORDERED: POTASSIUM CHLORIDE 20 MEQ TAB CR PO SCH (10:00)
[2020-06-30] MEDS: KCL 20 MEQ PACKET/ ORAL SOLN NG SCH (12:41)
[2020-06-30] MEDS: INSULIN GLARGINE 100 UNITS/ML VIAL SQ SCH (20:54)
[2020-07-01] VITALS (20 sets, daily range): BP systolic 89–133; BP diastolic 47–60
[2020-07-01] MEDS: INSULIN REGULAR, HUMAN 100 UNIT/1 ML 3ML VIAL SQ SCH ×4 (00:26→18:25)
[2020-07-01] MEDS: FENTANYL 2000MCG/NS 250 250 ML IV SCH ×3 (01:05→15:18)
[2020-07-01] MEDS: MIDAZOLAM HCL 5MG/ML 10ML VIAL 100 ML IV PRN ×3 (05:01→16:02)
[2020-07-01] MEDS: ENOXAPARIN SODIUM INJ 100 MG/ML SYR SC SCH ×2 (06:05→17:11)
[2020-07-01] MEDS: FUROSEMIDE INJ 100 MG in SODIUM CHLORIDE 0.9% 100 ML 90 ML IV SCH ×3 (06:05→12:23)
[2020-07-01 06:30] LABS: ANION GAP 18.2 mmol/L (8-16); CALCIUM 8.6 mg/dL (8.4-10.2); CREATININE, SERUM 1.01 mg/dL (0.57-1.11); POTASSIUM 3.2 mmol/L (3.5-5.1)
[2020-07-01] MEDS: ASCORBIC ACID 500 MG TAB PO SCH ×2 (08:17→17:11)
[2020-07-01] MEDS: HYDROCHLOROTHIAZIDE 25 MG TAB PO SCH (08:17)
[2020-07-01] MEDS: FAMOTIDINE 20 MG TAB PO SCH ×2 (08:17→17:11)
[2020-07-01] MEDS: CHOLECALCIFEROL 400 UNIT TAB PO SCH (08:17)
[2020-07-01] MEDS: ZINC SULFATE 220 MG CAP PO SCH (08:17)
[2020-07-01] MEDS: DOCUSATE SODIUM 100 MG CAP PO SCH ×2 (08:17→17:11)
[2020-07-01] MEDS: KCL 20 MEQ PACKET/ ORAL SOLN NG SCH (08:17)
[2020-07-01] MEDS: ROCURONIUM BROMIDE 1,250 MG in SODIUM CHLORIDE 0.9% 250ML 125 ML IV SCH (13:34)
[2020-07-01] MEDS: NOREPINEPHRINE 8 MG/D5W 250 ML 250 ML IV SCH (15:19)
[2020-07-01 15:53] LABS: ABG HCO3 42 mmol/L (22-26); ABG PCO2 46 mmHg (35-45); ABG PH 7.57 (7.35-7.45); ABG PO2 44 mmHg (80-105); ABG TCO2 44
== END 2020-07-01 19:51 | disposition expired | DRG 853 ==
LOC: ER 13:43 → ERHOLD 15:04 → COVIDICU 06-14 23:27 → IMCU 07-01 19:29
PROVIDERS: ADMIT Internal Medicine; ATTEND Internal Medicine
PROC: XW033E5 Introduction of Remdesivir Anti-infective into Peripheral Vein, Percutaneous Approach, New Technology Group 5 (ICD-10-PCS; 2020-06-12)
PROC: 8E0ZXY6 Isolation (ICD-10-PCS; 2020-06-12)
PROC: 02HV33Z Insertion of Infusion Device into Superior Vena Cava, Percutaneous Approach (ICD-10-PCS; 2020-06-15)
PROC: 5A1955Z Respiratory Ventilation, Greater than 96 Consecutive Hours (ICD-10-PCS; principal; 2020-06-18)
PROC: 0BH18EZ Insertion of Endotracheal Airway into Trachea, Via Natural or Artificial Opening Endoscopic (ICD-10-PCS; 2020-06-18)
PROC: 03HB3DZ Insertion of Intraluminal Device into Right Radial Artery, Percutaneous Approach (ICD-10-PCS; 2020-06-19)
DX: A41.9 Sepsis, unspecified organism (principal); U07.1 COVID-19; J12.82 Pneumonia due to coronavirus disease 2019; R65.21 Severe sepsis with septic shock; J96.01 Acute respiratory failure with hypoxia; J69.0 Pneumonitis due to inhalation of food and vomit; E87.1 Hypo-osmolality and hyponatremia; Z68.41 Body mass index [BMI] 40.0-44.9, adult; N17.9 Acute kidney failure, unspecified; E44.0 Moderate protein-calorie malnutrition; E11.65 Type 2 diabetes mellitus with hyperglycemia; Z51.5 Encounter for palliative care; Z66 Do not resuscitate; E87.6 Hypokalemia; D69.59 Other secondary thrombocytopenia; E66.01 Morbid (severe) obesity due to excess calories
CPT/HCPCS: 36415; 36569; 36600; 71045; 74018; 80048; 80053; 81001; 82550; 82553; 82805; 82948; 83605; 83735; 83880; 84484; 85025; 85610; 85730; 87040; 87070; 87071; 87205; 93306; 93970; 94002; 94003; 94660; 96361; 99285; J0456; J0696; J1100; J1650; J1815; J1817; J1940; J2405; J2543; J3370; J3480; J7030; J7040; J7050; P9047; U0002